=== PATIENT | male | born 1970 | race Caucasian/White ===

== ENCOUNTER 2020-03-06 07:05 | Day surgery (SDC) | payer SELFPAY ==
[2020-02-28 10:48] VITALS: BMI 32.1
--- NOTE | 2020-02-28 12:53 | HO.ANESPROP2 ---
Documented by User: Keiko Arita 03/05/20 10:54 HPI - Anesthesia Eval Consult details Narrative: 49yo M for colonoscopy [facility] Past Medical History Medical History History of fatty infiltration of liver Hx of mitral valve prolapse Pulmonary nodule Surgical History Surgical History H/O mitral valve repair Hx of cardiac catheterization Social History Social History Smoking Status: Former smoker Smoking Quit Date: 5-10 yr ago per H&P Advance Directives: No (unknown) Advance Directives Information Provided: No Meds Allergies Allergy/AdvReac Type Severity Reaction Status Date / Time No Known Allergies Allergy Verified 02/28/20 10:56 Home Medications Medication Instructions Recorded Confirmed Type aspirin 81 mg PO DAILY 02/28/20 03/06/20 History multivitamin 1 tab PO DAILY 02/28/20 02/28/20 History Exam Exam Date and Time: February 28, 2020 1253 Height,Weight and Vital Signs: Height 6 ft Weight 107.501 kg Pertinent Lab Results Pertinent Lab Results: Laboratory Tests 10/26/19 10/26/19 08:35 08:35 WBC 4.7 L Hgb 15.3 Hct 43.5 Plt Count 161 Sodium 140 Potassium 4.1 Chloride 105 BUN 21 H Creatinine 1.20 Narrative Narrative: EKG 10/30/19: NSR, ?LAE, Incomp RBBB, Prolonged QT@308 Per cardiology 01/08/20, pt was seen for ANGEL and chest tightness. ETT was essentially normal. Echo showed good mitral valve repair with secondary mild mitral stenosis. Nothing significant noticed to explain dyspnea. Clinically, not in heart failure. Per pulmonary 12/2019, mild restrictive physiology on PFT does not explain underlying dyspnea. Assessment and Plan Assessment Anesthesia Assessment: Chart Reviewed Documented by User: Facundo Martinez 03/06/20 08:33 [facility] Past Medical History Medical History History of fatty infiltration of liver Hx of mitral valve prolapse Pulmonary nodule Surgical History Surgical History H/O mitral valve repair Hx of cardiac catheterization Social History Social History Smoking Status: Former smoker Smoking Quit Date: 5-10 yr ago per H&P Advance Directives: No (unknown) Advance Directives Information Provided: No Meds Allergies Allergy/AdvReac Type Severity Reaction Status Date / Time No Known Allergies Allergy Verified 02/28/20 10:56 Home Medications Medication Instructions Recorded Confirmed Type aspirin 81 mg PO DAILY 02/28/20 03/06/20 History multivitamin 1 tab PO DAILY 02/28/20 02/28/20 History Exam Airway Mallampati Class: II TM Dist: >3cm Neck ROM: Full Denture: Upper Loose/Missing/Broken Teeth: Lower (Poor dentition) Heart: [id number] Lungs: cta b/l Assessment and Plan Assessment Anesthesia Assessment: Anesthesia Plan Discussed, PAT Visit and Chart Reviewed Final Anesthetic Review NPO: Yes ASA Class: II Final Preanesthetic Review: No Changes in Pt Med Stat, Meds/Allgs Chart Reviewed, Consent Obtained/Reviewed and Anes Risks/Benef Reviewed Patient Risk: Low Procedure Risk: Low Anesthetic Plan Anesthetic Plan: MAC: Disposition: Standard PACU
[2020-03-06 07:17] VITALS: BP 145/92; PULSE 93; RESP 18; TEMP 36.1; O2SAT 98
[2020-03-06] MEDS: Lactated Ringers 1,000 ML 100 ML IVCONT (07:33)
[2020-03-06] MEDS: Gentamicin Sulfate/NaCl 80 MG/100 ML PIGGYBACK 100 MG IV (07:40)
[2020-03-06] MEDS: Ampicillin Sodium 2 GM in 0.9 % Sodium Chloride 100 ML IV (07:41)
[2020-03-06 09:36] VITALS: BP 102/68; PULSE 84; RESP 12; TEMP 36.3; O2SAT 93
--- NOTE | 2020-03-06 09:39 | PM.OP ---
Brief Operative Note Date of procedure: 03/06/20 Pre-op diagnosis: Screening Post-op diagnosis: other (Diverticulosis, Internal hemorrhoids) Procedure: Colonoscopy to cecum and TI Surgeon: Mello Soto Anesthesia: MAC Pathology: none sent Condition: stable Disposition: PACU
[2020-03-06 09:51] VITALS: BP 121/85; PULSE 84; RESP 18; O2SAT 96
--- NOTE | 2020-04-14 12:03 | OP_ITS ---
SURGEON: Mello Soto MD INDICATIONS: The patient presents for evaluation of colorectal cancer screening. Full consent was obtained from him for this, including the risks of bleeding and perforation. PREOPERATIVE DIAGNOSIS: Colorectal cancer screening. POSTOPERATIVE DIAGNOSIS: PROCEDURE PERFORMED: Colonoscopy to the cecum and terminal ileum. ESTIMATED BLOOD LOSS: COMPLICATIONS: ANESTHESIA: Medication used, monitored anesthesia care. ASSISTANTS: SPECIMENS: POSTOPERATIVE DIAGNOSES: Colorectal cancer screening, diverticulosis, and internal hemorrhoids. DESCRIPTION OF PROCEDURE: The patient was placed in the left lateral decubitus position. The digital rectal exam revealed no abnormalities. The Olympus video pediatric colonoscope was entered into the rectum and advanced to the cecum. Once in the cecum, I did identify normal-appearing cecal pouch with appendiceal orifice and normal-appearing ileocecal valve. The terminal ileum was cannulated and appeared normal. The scope was withdrawn back into the colon. The entire cecum and ileocecal valve appeared normal. The scope was slowly withdrawn, assessing all mucosal surfaces carefully. Preparation was excellent. I did not visualize any sign of polyps, colitis, or angiodysplasia. There was a mild amount of sigmoid diverticulosis. In the rectum, scope was retroflexed visualizing internal hemorrhoids, but no other pathology. The rectal mucosa appeared normal. The scope was straightened and withdrawn from the patient. He tolerated the procedure well and was returned to recovery area in stable condition. IMPRESSION: 1. Sigmoid diverticulosis. 2. Internal hemorrhoids. PLAN: Given the negative exam and negative family history, I would recommend a followup colonoscopy in 10 years for further screening. Mello Soto MD RMW/MODL / [id number]
== END 2020-03-06 10:50 | disposition home or self-care (01) ==
PROVIDERS: PCP Internal Medicine; Visit Provider Internal Medicine
PROC: 0DJD8ZZ Inspection of Lower Intestinal Tract, Via Natural or Artificial Opening Endoscopic (ICD-10-PCS; CPT 45378; principal; 2020-03-06 08:30)
DX: Z12.11 Encounter for screening for malignant neoplasm of colon (principal); K57.30 Diverticulosis of large intestine without perforation or abscess without bleeding; K64.8 Other hemorrhoids; K76.0 Fatty (change of) liver, not elsewhere classified; R91.1 Solitary pulmonary nodule; Z79.82 Long term (current) use of aspirin; Z87.891 Personal history of nicotine dependence
CPT/HCPCS: 45378; J0290; J1580

== ENCOUNTER 2020-09-19 12:56 | Outpatient (REF) | payer OTHER, SELFPAY ==
[2020-09-19 13:27] LABS: COVID-19 Test Negative (Negative)
== END 2020-09-19 12:57 | disposition home or self-care (01) ==
LOC: HO.LAB 12:56
PROVIDERS: Visit Provider Internal Medicine
DX: Z20.822 Contact with and (suspected) exposure to COVID-19 (principal)
CPT/HCPCS: 36415; 87635; C9803

== ENCOUNTER 2020-11-11 16:42 | Emergency (ER) | payer OTHER, SELFPAY ==
--- NOTE | 2020-11-11 | ECG_ITS ---
Test Reason : cp Blood Pressure : / mmHG Vent. Rate : 092 BPM Atrial Rate : 092 BPM P-R Int : 164 ms QRS Dur : 120 ms QT Int : 410 ms P-R-T Axes : 037 054 031 degrees QTc Int : 507 ms Sinus rhythm with Premature atrial complexes Possible Left atrial enlargement Right bundle branch block Abnormal ECG No previous ECGs available Referred By: Generic ED Physician Electronically Signed By:Santo Newberry
--- NOTE | ~2020-11-11 | XR_ITS ---
EXAMINATION: XR CHEST CLINICAL INFORMATION: Chest pain COMPARISON: Chest CT 01/22/2020 TECHNIQUE: Frontal view of the chest was obtained. FINDINGS: Patient is status post median sternotomy. No significant abnormality is noted involving the heart, lungs, mediastinum, bony thorax or soft tissues. XR/XR chest 1V IMPRESSION: No acute intrathoracic disease.
--- NOTE | ~2020-11-11 | CT_ITS ---
EXAMINATION: CT ANGIOGRAM OF THE CHEST WITH AND WITHOUT CONTRAST (CT PULMONARY ANGIOGRAM FOR PE) CLINICAL INFORMATION: Reason for Exam Cp, cough blood COMPARISON: Chest radiograph 11/11/2020. Chest radiograph 01/22/2020. TECHNIQUE: Prior to contrast administration, noncontrast localization images were obtained. Subsequently, multidetector volumetric imaging was performed from the thoracic inlet to below the diaphragms following the administration of 71 mL Omnipaque 350 intravenous contrast. No contrast reaction reported Sagittal, coronal, and MIP oblique sagittal reformatted images were obtained on the CT workstation, uploaded to PACS, and reviewed. This CT examination was performed using dose optimization techniques as appropriate, variously including the following: *Automated exposure control *Adjustment of mA and/or kV according to patient size (this includes techniques or standardized protocols for targeted exams where dose is matched to indication/reason for exam; i.e. extremities or head) *Use of iterative reconstruction technique Total exam dose-length product 376 mGy-cm FINDINGS: QUALITY OF STUDY/CONTRAST BOLUS: Satisfactory. PULMONARY ARTERIES: No central or segmental pulmonary emboli. THORACIC AORTA: No aneurysm or dissection. LUNG: A 2 mm noncalcified subpleural nodule within the left lung base (series 4 image 38, series 5 image 306) is unchanged compared with 01/22/2020. No pulmonary consolidation is identified. No peribronchial wall thickening or endobronchial lesions noted. No centrilobular emphysematous changes. Minimal coarse reticular opacities are present within the lung bases and may represent minimal atelectasis or subpleural parenchymal scarring. PLEURA: No pleural effusion or pneumothorax. MEDIASTINUM: Normal heart size. No pericardial effusion. No hilar or mediastinal lymphadenopathy. No evidence of septal bowing or right heart strain. Partial visualization is made of a 9 mm rounded low-density focus within the left lobe of the thyroid which is statistically most likely to be benign and as an incidental finding does not specifically warranted additional imaging follow-up. Motion artifact suggestive of a mitral valve prosthesis is noted. CHEST WALL/AXILLA: Multiple median sternotomy wires are noted. OSSEOUS STRUCTURES: No suspicious skeletal lesions are noted. Multiple foci likely representing vertebral body hemangiomas are incidentally noted along with areas of scattered vertebral body endplate osteophytosis including prominent left lateral bridging osteophytosis within the midthoracic spine. UPPER ABDOMEN: Unremarkable. No reflux of contrast into the hepatic veins to suggest elevated right heart pressures. CT/CT angio chest PE protocol IMPRESSION: 1. CT pulmonary angiogram negative for pulmonary emboli or acute abnormalities. 2. No evidence of pulmonary edema or pneumonia. 3. Single 2 mm subpleural noncalcified pulmonary nodule within the left lung base unchanged compared with 01/22/2020 which is benign in appearance. 4. Partially visualized mitral valve prosthesis or mitral valve annulus. This region is obscured from precise visualization by cardiac motion artifact. VTE: negative
[2020-11-11 16:44] VITALS: BP 142/82; PULSE 95; RESP 18; TEMP 36.7; O2SAT 95; BMI 29.8
--- NOTE | 2020-11-11 17:14 | ED.CHESTPAIN ---
HPI - Chest Pain General Chief Complaint: Chest Pain Stated Complaint: Chest pain/SOB Time Seen by Provider: 11/11/20 17:11 Source: patient Mode of arrival: ambulatory Limitations: no limitations History of Present Illness HPI narrative: 50-year-old male with history of mitral valve replacement who presents with complaint of left-sided chest pain started since yesterday. Pain described as ache like worsening with certain movements and deep inspiration as well as his mild cough. States he did notice that there was phlegm with some blood in it. States symptoms started after he played softball game and over-exerted himself. Pain is reproducible with palpation and certain movements. He otherwise denies any fever or chills, he has received both of his COVID-19 vaccinations. MD complaint: chest pain Onset (ago): day(s) (Yesterday) Prior episodes: No Pain radiation: none Severity: moderate Quality: aching Relieving factors: rest Exacerbating factors: inspiration, palpation and movement Treatment prior to arrival: none Risk Factors Coronary artery disease risk factors: none Thoracic aortic dissection risk factors: none Related Data Home Medications Medication Instructions Recorded Confirmed aspirin 81 mg PO DAILY 02/28/20 03/06/20 multivitamin 1 tab PO DAILY 02/28/20 02/28/20 Allergies Allergy/AdvReac Type Severity Reaction Status Date / Time No Known Allergies Allergy Verified 03/06/20 14:07 Review of Systems Review of Systems: Constitutional: No Weight loss, No Fever, No Chills, No Night Sweats, No Fatigue, No Malaise ENT/Mouth: No Hearing loss, No Ear Pain, No Nasal Congestion, No Sinus Pain, No Hoarseness, No sore throat, No Rhinorrhea, No Swallowing Difficulty Eyes: No Eye Pain, No Swelling, No Redness, No Foreign Body, No Discharge, No Vision Changes Cardiovascular: + Chest Pain, No SOB, No Dyspnea on Exertion, No Orthopnea, No Edema, No Palpitations Respiratory: + Cough, No Sputum, No Wheezing, No Smoke Exposure, No Dyspnea Gastrointestinal: No Nausea, No Vomiting, No Diarrhea, No Constipation, No abdominal Pain, No Hematochezia, No Melena Genitourinary: no irregular bleeding, No Dysuria, No Urinary Frequency, No Hematuria, No Urinary Incontinence, No Urgency, No Flank Pain, No Urinary Flow Changes, No Hesitancy Musculoskeletal: No joint pain, No Myalgias, No Joint Swelling Skin: No Skin Lesions, No rash Neuro: No Weakness, No Numbness, No Paresthesias, No Loss of Consciousness, No Dizziness, No Headache Psych: No Social Issues Heme/Lymph: No Bruising, No Bleeding,No Lymphadenopathy Endocrine: No Polyuria, No Polydipsia, No Temperature Intolerance Yes all other systems are reviewed and are negative [facility] Past Medical History Medical History History of fatty infiltration of liver Hx of mitral valve prolapse Pulmonary nodule Surgical History H/O mitral valve repair Hx of cardiac catheterization Family History Family History (Updated 03/06/20 @ 14:07 by Nayla Mena Shayan) Father Medical history unknown Mother Medical history unknown Social History Social History Alcohol intake: current Alcohol intake frequency: holidays/special occasions only Patient Tobacco Use Status: Never used Tobacco Use of substances other than those prescribed or required for medical reasons: No Advance Directives: No Advance Directives Information Provided: No Physical Exam Vital Signs: Vital Signs: Last Vital Signs Temp 98.1 F 11/11/20 16:44 Pulse 85 11/11/20 19:43 Resp 16 11/11/20 19:43 BP 110/63 11/11/20 19:43 Pulse Ox 96 11/11/20 19:43 Body Mass Index 29.8 Reviewed Const: General: cooperative and healthy appearing; No acute distress or intoxicated appearing Nutritional Appearance: average body habitus Orientation/consciousness: patient oriented x3 HENMT: Head: Yes normal to inspection Ears: hearing grossly normal bilaterally Eyes: General: appearance normal, both eyes and all related structures Visual Adorno: normal visual adorno by confrontation Neck: Neck: Yes normal visual inspection, No positive Brudzinski's sign, No positive Kernig's sign and No tender Thyroid: Thyroid normal Chest: Chest palpation & inspection: tenderness pectoral muscle on the left Resp: Effort & Inspection: normal respiratory effort Auscultation: clear to auscultation bilaterally Cardio: Jugular venous distension: no JVD Heart sounds: S1 normal heart sound present and S2 normal heart sound present GI: Inspection: Yes normal to inspection Percussion: Yes normal to percussion Auscultation: normal bowel sounds : General: Yes no CVA tenderness Back/Spine/Pelvis: Back: no CVA tenderness Skin: General skin exam: no rashes or lesions noted Neuro: General: patient oriented x3 Extrem: General: Yes normal to inspection Course Course Course Narrative: Atypical, pain reproducible does have mild cough and phlegm with reported blood 1 episode. He does not take any blood thinners. Will check cardiac enzymes, EKG and chest x-ray. He is slightly tachycardic at 101 does appear anxious and admits to being anxious he does have mitral valve replacement and states that this is medium anxious that he is having this pain. Check CTA chest rule out PE. EKG on arrival nondiagnostic. Will treat with gradual IV fluids and Tylenol p.o.. Reevaluation(s) Reevaluation #1: Labs overall reassuring repeat troponin without delta. CTA chest unremarkable. Findings similar to previous. Discussed with patient and significant other. Will discharge home with instructions for costochondritis, supportive care, return and follow-up instructions. Comfortable plan. Stable for discharge. MDM - Chest Pain Medical Records Data Attestation: I reviewed the patient's medical records. Lab Data Attestation: I reviewed the patient's lab results. Result diagrams: 11/11/20 17:21 11/11/20 17:21 Labs: Lab Results 11/11/20 11/11/20 11/11/20 Range/Units 17:21 17:21 17:21 WBC 6.1 (4.8-10.8) X10*3/uL RBC 5.03 (4.60-5.80) X10*6/uL Hgb 14.3 (14.0-18.0) g/dl Hct 40.3 L (42-52) % MCV 80.1 (80-98) fL MCH 28.4 (27.0-33.0) pg MCHC 35.5 (31.0-36.0) g/dl RDW 12.8 (11.0-16.0) % Plt Count 144 L (160-400) X10*3/uL MPV 10.0 (9.4-12.4) fL Immature Gran % (Auto) 0.2 (0.0-0.4) % Neut % (Auto) 65.1 (45-73) % Lymph % (Auto) 26.1 (20-40) % [place] % (Auto) 6.8 (2-11) % Eos % (Auto) 1.3 (0-4) % Baso % (Auto) 0.5 (0-2) % Lymph # (Auto) 1.6 (1.2-4.9) X10*3/uL [place] # (Auto) 0.4 (0.1-1.2) X10*3/uL Eos # (Auto) 0.1 (0.0-0.4) X10*3/uL Baso # (Auto) 0.0 (0.0-0.2) X10*3/uL Abs Immat Gran (auto) 0.01 (0.00-0.03) X10*3/uL Absolute Neuts (auto) 3.9 (2.0-8.3) X10*3/uL Absolute Nucleated RBC 0.000 (0.0-0.012) X10*3/uL Nucleated RBC % (auto) 0.0 (0.0-0.2) /100WBC PT 14.2 H (10.8-13.0) SEC INR 1.2 H (0.9-1.1) APTT 31.8 (24.1-38.0) SEC Sodium 141 (135-145) mmol/L Potassium 3.6 (3.3-5.1) mmol/L Chloride 109 H (96-108) mmol/L Carbon Dioxide 23 (22-29) mmol/L Anion Gap 13 (12-20) BUN 16 (9-16) mg/dL Creatinine 1.26 (0.5-1.4) mg/dL Estim Creat Clear Calc 84.8 Estimated GFR > 60 Random Glucose 138 H (60-115) mg/dL Calcium 8.9 (8.4-10.2) mg/dL Total Bilirubin 1.1 H (0.0-1.0) mg/dL AST 32 (5-37) U/L ALT 35 (0-40) U/L Alkaline Phosphatase 110 (39-117) U/L Troponin I High Sens (<3.5-35.0) ng/L Total Protein 6.7 (6.5-8.0) g/dL Albumin 4.1 (3.5-5.0) g/dL Urine Color Urine Appearance Urine pH (5.0-8.0) Ur Specific [place] (1.005-1.025) Urine Protein (NEG-TRACE) MG/DL Urine Glucose (UA) (NEG) MG/DL Urine Ketones (NEG) MG/DL Urine Blood (NEG) Urine Nitrite (NEG) Ur Leukocyte Esterase (NEG) Urine RBC (0) /HPF Urine WBC (0-4) /HPF Ur Squamous Epith Cells /LPF Urine Bacteria /LPF Urine Mucus /LPF Urine Opiates Screen (Not Detect) Ur Barbiturates Screen (Not Detect) Ur Phencyclidine Scrn (Not Detect) Ur Amphetamines Screen (Not Detect) U Benzodiazepines Scrn (Not Detect) Urine Cocaine Screen (Not Detect) U Marijuana (THC) Screen (Not Detect) COVID-19 ([facility]) (Negative) COVID-19 Clin Com 11/11/20 11/11/20 11/11/20 Range/Units 17:21 17:29 17:29 WBC (4.8-10.8) X10*3/uL RBC (4.60-5.80) X10*6/uL Hgb (14.0-18.0) g/dl Hct (42-52) % MCV (80-98) fL MCH (27.0-33.0) pg MCHC (31.0-36.0) g/dl RDW (11.0-16.0) % Plt Count (160-400) X10*3/uL MPV (9.4-12.4) fL Immature Gran % (Auto) (0.0-0.4) % Neut % (Auto) (45-73) % Lymph % (Auto) (20-40) % [place] % (Auto) (2-11) % Eos % (Auto) (0-4) % Baso % (Auto) (0-2) % Lymph # (Auto) (1.2-4.9) X10*3/uL [place] # (Auto) (0.1-1.2) X10*3/uL Eos # (Auto) (0.0-0.4) X10*3/uL Baso # (Auto) (0.0-0.2) X10*3/uL Abs Immat Gran (auto) (0.00-0.03) X10*3/uL Absolute Neuts (auto) (2.0-8.3) X10*3/uL Absolute Nucleated RBC (0.0-0.012) X10*3/uL Nucleated RBC % (auto) (0.0-0.2) /100WBC PT (10.8-13.0) SEC INR (0.9-1.1) APTT (24.1-38.0) SEC Sodium (135-145) mmol/L Potassium (3.3-5.1) mmol/L Chloride (96-108) mmol/L Carbon Dioxide (22-29) mmol/L Anion Gap (12-20) BUN (9-16) mg/dL Creatinine (0.5-1.4) mg/dL Estim Creat Clear Calc Estimated GFR Random Glucose (60-115) mg/dL Calcium (8.4-10.2) mg/dL Total Bilirubin (0.0-1.0) mg/dL AST (5-37) U/L ALT (0-40) U/L Alkaline Phosphatase (39-117) U/L Troponin I High Sens 8.1 (<3.5-35.0) ng/L Total Protein (6.5-8.0) g/dL Albumin (3.5-5.0) g/dL Urine Color YELLOW Urine Appearance CLEAR Urine pH 6.0 (5.0-8.0) Ur Specific [place] >= 1.030 H (1.005-1.025) Urine Protein NEG (NEG-TRACE) MG/DL Urine Glucose (UA) NEG (NEG) MG/DL Urine Ketones NEG (NEG) MG/DL Urine Blood NEG (NEG) Urine Nitrite NEG (NEG) Ur Leukocyte Esterase NEG (NEG) Urine RBC 0 (0) /HPF Urine WBC 0 (0-4) /HPF Ur Squamous Epith Cells TRACE /LPF Urine Bacteria TRACE /LPF Urine Mucus 3+ /LPF Urine Opiates Screen Not Detected (Not Detect) Ur Barbiturates Screen Not Detected (Not Detect) Ur Phencyclidine Scrn Not Detected (Not Detect) Ur Amphetamines Screen Not Detected (Not Detect) U Benzodiazepines Scrn Not Detected (Not Detect) Urine Cocaine Screen Not Detected (Not Detect) U Marijuana (THC) Screen POSITIVE H (Not Detect) COVID-19 ([facility]) (Negative) COVID-19 Clin Com 11/11/20 11/11/20 Range/Units 19:37 21:01 WBC (4.8-10.8) X10*3/uL RBC (4.60-5.80) X10*6/uL Hgb (14.0-18.0) g/dl Hct (42-52) % MCV (80-98) fL MCH (27.0-33.0) pg MCHC (31.0-36.0) g/dl RDW (11.0-16.0) % Plt Count (160-400) X10*3/uL MPV (9.4-12.4) fL Immature Gran % (Auto) (0.0-0.4) % Neut % (Auto) (45-73) % Lymph % (Auto) (20-40) % [place] % (Auto) (2-11) % Eos % (Auto) (0-4) % Baso % (Auto) (0-2) % Lymph # (Auto) (1.2-4.9) X10*3/uL [place] # (Auto) (0.1-1.2) X10*3/uL Eos # (Auto) (0.0-0.4) X10*3/uL Baso # (Auto) (0.0-0.2) X10*3/uL Abs Immat Gran (auto) (0.00-0.03) X10*3/uL Absolute Neuts (auto) (2.0-8.3) X10*3/uL Absolute Nucleated RBC (0.0-0.012) X10*3/uL Nucleated RBC % (auto) (0.0-0.2) /100WBC PT (10.8-13.0) SEC INR (0.9-1.1) APTT (24.1-38.0) SEC Sodium (135-145) mmol/L Potassium (3.3-5.1) mmol/L Chloride (96-108) mmol/L Carbon Dioxide (22-29) mmol/L Anion Gap (12-20) BUN (9-16) mg/dL Creatinine (0.5-1.4) mg/dL Estim Creat Clear Calc Estimated GFR Random Glucose (60-115) mg/dL Calcium (8.4-10.2) mg/dL Total Bilirubin (0.0-1.0) mg/dL AST (5-37) U/L ALT (0-40) U/L Alkaline Phosphatase (39-117) U/L Troponin I High Sens 7.4 (<3.5-35.0) ng/L Total Protein (6.5-8.0) g/dL Albumin (3.5-5.0) g/dL Urine Color Urine Appearance Urine pH (5.0-8.0) Ur Specific [place] (1.005-1.025) Urine Protein (NEG-TRACE) MG/DL Urine Glucose (UA) (NEG) MG/DL Urine Ketones (NEG) MG/DL Urine Blood (NEG) Urine Nitrite (NEG) Ur Leukocyte Esterase (NEG) Urine RBC (0) /HPF Urine WBC (0-4) /HPF Ur Squamous Epith Cells /LPF Urine Bacteria /LPF Urine Mucus /LPF Urine Opiates Screen (Not Detect) Ur Barbiturates Screen (Not Detect) Ur Phencyclidine Scrn (Not Detect) Ur Amphetamines Screen (Not Detect) U Benzodiazepines Scrn (Not Detect) Urine Cocaine Screen (Not Detect) U Marijuana (THC) Screen (Not Detect) COVID-19 ([facility]) Negative (Negative) COVID-19 Clin Com See Note Imaging Data Chest x-ray: Radiologist's impression: [address] [id number] ReportSigned Patient: Mikael Mann TMR#: [id number]: 1970Acct:[id number]/Sex: 50 / MADM Date: 11/11/20Loc: Noe Dr: Ordering Physician: Kyler Gallegos NP Date of Service: 11/11/20 Procedure(s): XR chest 1V Accession Number(s): [id number] cc: Kyler Gallegos VP DIRECTOR OF FINANCE~ EXAMINATION: XR CHEST CLINICAL INFORMATION: Chest pain COMPARISON: Chest CT 01/22/2020 TECHNIQUE: Frontal view of the chest was obtained. FINDINGS: Patient is status post median sternotomy. No significant abnormality is noted involving the heart, lungs, mediastinum, bony thorax or soft tissues. XR/XR chest 1V IMPRESSION: No acute intrathoracic disease. Dictated By:BOUCHRA BARNEY MDSigned By:<Electronically signed by BOUCHRA BARNEY MD in [place]>11/11/201800 DD/ TD/TT: Executive Search Consultant: SS CTA chest: Radiologist's impression: [address] [id number] Scan ReportSigned Patient: Mikael Mann TMR#: [id number]: 1970Acct:[id number]/Sex: 50 / MADM Date: 11/11/20Loc: YEE.EDAttending Dr: Ordering Physician: Kyler Gallegos NP Date of Service: 11/11/20 Procedure(s): CT angio chest PE protocol Accession Number(s): [id number] cc: Kyler Gallegos NP~ EXAMINATION: CT ANGIOGRAM OF THE CHEST WITH AND WITHOUT CONTRAST (CT PULMONARY ANGIOGRAM FOR PE) CLINICAL INFORMATION: Reason for Exam Cp, cough blood COMPARISON: Chest radiograph 11/11/2020. Chest radiograph 01/22/2020. TECHNIQUE: Prior to contrast administration, noncontrast localization images were obtained. Subsequently, multidetector volumetric imaging was performed from the thoracic inlet to below the diaphragms following the administration of 71 mL Omnipaque 350 intravenous contrast. No contrast reaction reported Sagittal, coronal, and MIP oblique sagittal reformatted images were obtained on the CT workstation, uploaded to PACS, and reviewed. This CT examination was performed using dose optimization techniques as appropriate, variously including the following: *Automated exposure control *Adjustment of mA and/or kV according to patient size (this includes techniques or standardized protocols for targeted exams where dose is matched to indication/reason for exam; i.e. extremities or head) *Use of iterative reconstruction technique Total exam dose-length product 376 mGy-cm FINDINGS: QUALITY OF STUDY/CONTRAST BOLUS: Satisfactory. PULMONARY ARTERIES: No central or segmental pulmonary emboli. THORACIC AORTA: No aneurysm or dissection. LUNG: A 2 mm noncalcified subpleural nodule within the left lung base (series 4 image 38, series 5 image 306) is unchanged compared with 01/22/2020. No pulmonary consolidation is identified. No peribronchial wall thickening or endobronchial lesions noted. No centrilobular emphysematous changes. Minimal coarse reticular opacities are present within the lung bases and may represent minimal atelectasis or subpleural parenchymal scarring. PLEURA: No pleural effusion or pneumothorax. MEDIASTINUM: Normal heart size. No pericardial effusion. No hilar or mediastinal lymphadenopathy. No evidence of septal bowing or right heart strain. Partial visualization is made of a 9 mm rounded low-density focus within the left lobe of the thyroid which is statistically most likely to be benign and as an incidental finding does not specifically warranted additional imaging follow-up. Motion artifact suggestive of a mitral valve prosthesis is noted. CHEST WALL/AXILLA: Multiple median sternotomy wires are noted. OSSEOUS STRUCTURES: No suspicious skeletal lesions are noted. Multiple foci likely representing vertebral body hemangiomas are incidentally noted along with areas of scattered vertebral body endplate osteophytosis including prominent left lateral bridging osteophytosis within the midthoracic spine. UPPER ABDOMEN: Unremarkable. No reflux of contrast into the hepatic veins to suggest elevated right heart pressures. CT/CT angio chest PE protocol IMPRESSION: 1. CT pulmonary angiogram negative for pulmonary emboli or acute abnormalities. 2. No evidence of pulmonary edema or pneumonia. 3. Single 2 mm subpleural noncalcified pulmonary nodule within the left lung base unchanged compared with 01/22/2020 which is benign in appearance. 4. Partially visualized mitral valve prosthesis or mitral valve annulus. This region is obscured from precise visualization by cardiac motion artifact. VTE: negative Dictated By:TRACI MACIAS MDSigned By:<Electronically signed by TRACI MACIAS MD in [place]>11/11/202014 DD/ 1842TD/TT: Executive Search Consultant: EF ECG Data ECG #1: Interpretation: Vent. Rate : 092 BPM Atrial Rate : 092 BPM P-R Int : 164 ms QRS Dur : 120 ms QT Int : 410 ms P-R-T Axes : 037 054 031 degrees QTc Int : 507 ms Sinus rhythm with Premature atrial complexes Possible Left atrial enlargement Right bundle branch block Abnormal ECG No previous ECGs available Discharge Plan Discharge Clinical Impression: Atypical chest pain, Costalchondritis, Thrombocytopenia Patient Disposition: Home, Self-Care Instructions: Chest Pain (ED), Costochondritis (ED) Additional Instructions: Your exam is consistent with strain of the chest muscle caused by over exertion during softball. The blood work for heart did not show any evidence of a heart attack including repeat blood test. Your chest x-ray did not show any evidence of infection That CT scan of her chest did not show any evidence of pulmonary embolism. At this point I recommend gentle stretching, warm compresses slowly increase your activity as tolerated. You can take [id number] ibuprofen for pain discomfort for next 3 days as needed per label instructions. Follow with her primary care doctor and her administrative support assoc as planned Return if any concerns or worsening symptoms Thank you Prescriptions: No Action multivitamin Tablet 1 tab PO DAILY RF: 0 aspirin 81 mg Tablet 81 mg PO DAILY RF: 0 Referrals: Eric Tubbs MD [Primary Care Provider] - 5 days Stand Alone Forms: Work/School Release Interventions: ED Discharge Assessment Last Done: 11/11/20 21:11 Discharge Date/Time: 11/11/20 21:12
[2020-11-11 17:25] LABS: MANUAL DIFF FLAG NO
[2020-11-11] MEDS: Acetaminophen 325 MG TABLET 975 MG PO (17:26)
[2020-11-11 17:28] LABS: Basophils Percent Auto 0.5 % (0-2); Eosinophils Absolute Auto 0.1 X10*3/uL (0.0-0.4); Eosinophils Percent Auto 1.3 % (0-4); Hematocrit 40.3 % (42-52); Hemoglobin 14.3 g/dl (14.0-18.0); Imm Gran Abs Auto 0.01 X10*3/uL (0.00-0.03); Imm Gran Pct Auto 0.2 % (0.0-0.4); Lymphocytes Absolute Auto 1.6 X10*3/uL (1.2-4.9); Lymphocytes Percent Auto 26.1 % (20-40); Mean Corpuscular HGB Conc 35.5 g/dl (31.0-36.0); Mean Corpuscular Hemoglobin 28.4 pg (27.0-33.0); Mean Corpuscular Volume 80.1 fL (80-98); Monocytes Absolute Auto 0.4 X10*3/uL (0.1-1.2); Monocytes Percent Auto 6.8 % (2-11); Neutrophils Absolute Auto 3.9 X10*3/uL (2.0-8.3); Neutrophils Percent Auto 65.1 % (45-73); Platelet Count 144 X10*3/uL (160-400); Red Blood Count 5.03 X10*6/uL (4.60-5.80); Red Cell Distribution Width 12.8 % (11.0-16.0); White Blood Count 6.1 X10*3/uL (4.8-10.8)
[2020-11-11] MEDS: 0.9 % Sodium Chloride 1,000 ML 999 ML IV (17:28)
[2020-11-11 17:32] LABS: INTERNATIONAL NORM RATIO 1.2 (0.9-1.1); Prothrombin Time 14.2 SEC (10.8-13.0)
[2020-11-11 17:34] LABS: Glucose Urine UA NEG (NEG); Leukocyte Esterase Urine NEG (NEG); Nitrite Urine NEG (NEG); Specific Gravity - Urine >= 1.030 (1.005-1.025); Urine Blood NEG (NEG); Urine Ketones NEG (NEG); Urine Protein NEG (NEG-TRACE)
[2020-11-11 17:35] LABS: Partial Thromboplastin Time 31.8 SEC (24.1-38.0)
[2020-11-11 17:35] LABS: Appearance Urine CLEAR; Color Urine YELLOW
[2020-11-11 17:50] LABS: Bacteria Urine TRACE /LPF; Mucus Urine 3+ /LPF; RBC Urine 0 /HPF (0); Squamous Epithelial Cell Urine TRACE /LPF; WBC Urine 0 /HPF (0-4)
[2020-11-11 18:02] LABS: Alanine Aminotransferase 35 U/L (0-40); Albumin Level 4.1 g/dL (3.5-5.0); Alkaline Phosphatase 110 U/L (39-117); Anion Gap 13 (12-20); Aspartate Amino Transferase 32 U/L (5-37); Bilirubin Total 1.1 mg/dL (0.0-1.0); Blood Urea Nitrogen 16 mg/dL (9-16); Calcium 8.9 mg/dL (8.4-10.2); Carbon Dioxide 23 mmol/L (22-29); Chloride 109 mmol/L (96-108); Creatinine Clr Calc Pharmacy 84.8; Estimated Glomerular Filt Rate > 60; Glucose Random 138 mg/dL (60-115); Potassium 3.6 mmol/L (3.3-5.1); Sodium 141 mmol/L (135-145); Total Protein 6.7 g/dL (6.5-8.0)
[2020-11-11 18:03] LABS: Amphetamine Screen Urine Not Detected (Not Detect); Barbiturates, Urine Not Detected (Not Detect); Benzodiazepines Screen Urine Not Detected (Not Detect); Cannabinoid Screen Urine POSITIVE (Not Detect); Cocaine Screen Urine Not Detected (Not Detect); Opiate Screen Urine Not Detected (Not Detect); Phencyclidine Screen Urine Not Detected (Not Detect)
[2020-11-11 18:08] LABS: Troponin-I High Sensitivity 8.1 ng/L (<3.5-35.0)
[2020-11-11] MEDS: iohexoL 350 MG/ML 100 ML INFUS..BTL IV (19:34)
[2020-11-11 19:43] VITALS: BP 110/63; PULSE 85; RESP 16; O2SAT 96
[2020-11-11 20:13] LABS: Troponin-I High Sensitivity 7.4 ng/L (<3.5-35.0)
[2020-11-11 21:22] LABS: COVID-19 Test Negative (Negative)
== END 2020-11-11 21:12 | disposition home or self-care (01) ==
PROVIDERS: Nurse Practitioner Primary Care; Emergency Provider Emergency Medicine; PCP Internal Medicine
DX: R07.89 Other chest pain (principal); M94.0 Chondrocostal junction syndrome [Tietze]; D69.6 Thrombocytopenia, unspecified; Z95.2 Presence of prosthetic heart valve; Z79.82 Long term (current) use of aspirin; Z20.822 Contact with and (suspected) exposure to COVID-19
CPT/HCPCS: 36415; 71045; 71275; 80053; 80307; 81001; 84484; 85025; 85610; 85730; 87635; 93005; 96360; 99285; Q9967

== ENCOUNTER 2022-04-28 16:57 | Emergency (ER) | payer BC, SELFPAY ==
--- NOTE | 2022-04-28 17:00 | ECG_ITS ---
Test Reason : CHEST PAIN Blood Pressure : / mmHG Vent. Rate : 090 BPM Atrial Rate : 090 BPM P-R Int : 160 ms QRS Dur : 114 ms QT Int : 388 ms P-R-T Axes : 018 041 016 degrees QTc Int : 474 ms Normal sinus rhythm Incomplete right bundle branch block Borderline ECG When compared with ECG of 11-NOV-2020 16:54, Premature atrial complexes are no longer Present Referred By: Generic ED Physician Electronically Signed By:KATRINA RUIZ MD
[2022-04-28 18:25] VITALS: BP 118/77; PULSE 84; RESP 16; TEMP 36.6; O2SAT 96; BMI 29.1
[2022-04-28 18:41] VITALS: BP 124/76; PULSE 75; RESP 18; TEMP 36.3; O2SAT 97
[2022-04-28 18:52] LABS: IDNOW Serial# 16C4AD1C; Influenza A Invalid (Negative); Influenza B2 Invalid (Negative)
--- NOTE | 2022-04-28 19:02 | ED.CHESTPAIN ---
HPI - Chest Pain General Chief Complaint: Chest Pain Stated Complaint: Chest pain/Difficulty breathing Time Seen by Provider: 04/28/22 18:54 Source: patient Mode of arrival: ambulatory Limitations: no limitations History of Present Illness HPI narrative: Patient is status post mitral valve annuloplasty 6 years ago no other coronary artery disease noticed pain left side of the chest for last 3 days off and on lasting for few minutes today pain got worse lasted for 10 minutes associated with cold sweats pain was radiating to the left arm felt little short of breath patient does have history of anxiety and poor sleep Related Data Home Medications Medication Instructions Recorded Confirmed aspirin 81 mg tablet 81 mg PO DAILY 02/28/20 06/11/21 multivitamin 1 tab PO DAILY 02/28/20 06/11/21 Previous Rx's Medication Instructions Recorded cephalexin 500 mg capsule 500 mg PO Q8H #30 caps 06/11/21 aspirin 81 mg chewable tablet 81 mg PO DAILY #30 tabs 04/28/22 Allergies Allergy/AdvReac Type Severity Reaction Status Date / Time No Known Allergies Allergy Verified 06/11/21 14:17 Review of Systems Review of Systems: Yes all other systems are reviewed and are negative [facility] Past Medical History Medical History History of fatty infiltration of liver Hx of mitral valve prolapse Pulmonary nodule Surgical History H/O mitral valve repair Hx of cardiac catheterization Family History Family History Father Medical history unknown Mother Medical history unknown Social History Social History Housing: Apartment Alcohol intake: former Patient Tobacco Use Status: Former Tobacco user Tobacco use type: Cigarette Smoked in Last 30 Days: No e-Cigarette/Vaping Use: Never Used Second Hand Smoke Exposure: No Use of substances other than those prescribed or required for medical reasons: No Advance Directives: No Advance Directives Information Provided: No service: Yes Current occupational status: employed Cognitive needs: No Hearing needs: No Vision needs: No Physical Exam Vital Signs: Vital Signs: Last Vital Signs Temp 97.4 F 04/28/22 18:41 Pulse 74 04/28/22 19:21 Resp 18 12/06/22 19:35 BP 124/76 04/28/22 18:41 Pulse Ox 97 04/28/22 18:41 O2 Del Method 04/28/22 18:41 BMI result Body Mass Index 29.1 Appearance: Alert. Oriented X3. No acute distress. Eyes: No pallor or icterus ENT: Pharynx normal. Oral Mucosa moist Neck: Normal inspection. Neck supple. CVS: Normal heart rate and rhythm. Pulses normal soft systolic murmur at apex. Respiratory: No respiratory distress. Equal air entry bilateral, no wheezing/rales/rhonchi Abdomen: Soft and nontender. Bowel sounds are present, no mass palpable, no CVA tenderness Skin: Skin warm and dry. Normal skin color. Normal skin turgor. Extremities: No lower extremity edema. No calf tenderness Neuro: Oriented X 3. No motor deficit. Medications Administered Discontinued Medications Generic Name Dose Route Start Last Admin Trade Name Freq PRN Reason Stop Dose Admin Aspirin 162 mg 04/28/22 19:10 04/28/22 19:22 Aspirin Enteric Coated 81 Mg Tablet. PO 04/28/22 19:11 162 mg ONCE ONE Administration Nitroglycerin 0.5 inch 04/28/22 19:10 04/28/22 19:21 Nitroglycerin 2 % Oint 1 Gm Packet TRANSDERMA 04/28/22 19:11 0.5 inch ONCE ONE Administration Medical Decision Making Medical Decision Making [facility] Narrative: Patient with chest pain for last 3 days EKG without any ischemic changes 2 sets of high sensitive troponin negative without any delta change. For leisure patient home advised to follow with online marketing strategist Differential Diagnoses: Differential diagnosis (ACS, PE, anxiety, costochondritis) Differential Diagnosis: The differential diagnosis associated with the patient?s presentation includes: Independent interpretation of EKG, rhythm strip, radiology study: Independent interp EKG,rhythm strip, radiology study I performed an independent interpretation of the: EKG My interpretation is Normal sinus rhythm heart rate 90 beats per minute incomplete right bundle-branch blockl normal axis no acute ST wave changes no acute ischemia Discharge Plan Discharge Clinical Impression: Chest pain Patient Disposition: Home, Self-Care Instructions: Chest Pain (ED) Additional Instructions: Take baby aspirin daily Follow-up with PCP/online marketing strategist for further evaluation Report to the ER if worsening of chest pain Prescriptions: New aspirin 81 mg tablet,chewable 81 mg PO DAILY Qty: 30 0RF No Action multivitamin Tablet 1 tab PO DAILY aspirin 81 mg Tablet 81 mg PO DAILY cephalexin 500 mg capsule 500 mg PO Q8H Qty: 30 0RF
[2022-04-28 19:21] VITALS: PULSE 74
[2022-04-28] MEDS: Nitroglycerin 2 % Oint 1 GM Packet 0.5 INCH TRANSDERMA (19:21)
[2022-04-28 19:22] LABS: COVID-19 Test Negative (Negative); IDNOW Serial# BCCEAD1C
[2022-04-28] MEDS: Aspirin Enteric Coated 81 MG TABLET.DR 162 MG PO (19:22)
[2022-04-28 19:35] VITALS: RESP 18
[2022-04-28 19:38] LABS: MANUAL DIFF FLAG NO
[2022-04-28 19:41] LABS: Basophils Percent Auto 0.4 % (0-2); Eosinophils Percent Auto 0.7 % (0-4); Hematocrit 41.7 % (42.0-52.0); Hemoglobin 14.8 g/dl (14.0-18.0); Imm Gran Abs Auto 0.01 X10*3/uL (0.00-0.03); Imm Gran Pct Auto 0.2 % (0.0-0.4); Lymphocytes Absolute Auto 1.7 X10*3/uL (1.2-4.9); Lymphocytes Percent Auto 30.5 % (20-40); Mean Corpuscular HGB Conc 35.5 g/dl (31.0-36.0); Mean Corpuscular Hemoglobin 28.5 pg (27.0-33.0); Mean Corpuscular Volume 80.3 fL (80.0-98.0); Mean Platelet Volume 9.8 fL (9.4-12.4); Monocytes Absolute Auto 0.3 X10*3/uL (0.1-1.2); Monocytes Percent Auto 5.6 % (2-11); Neutrophils Absolute Auto 3.6 x10*3/uL (2.0-8.3); Neutrophils Percent Auto 62.6 % (45-73); Platelet Count 141 X10*3/uL (160-400); Red Blood Count 5.19 X10*6/uL (4.60-5.80); Red Cell Distribution Width 12.7 % (11.0-16.0); White Blood Count 5.7 X10*3/uL (4.8-10.8)
--- NOTE | 2022-04-28 19:43 | PC.NURSE ---
Pt's V/S are stable, Pt has left chest pain that radiates to the left arm 8/10 x 2days. Pt had done EKG, IV line was inserted and labs were obtain. Pt was medicated as order. Pt has clear lung sounds upper lobes and diminished lung sound in the lower lungs bilaterally. skin turgor +, capillary refills <2, pt denies N/V and other s/s. Pt spouse is at bedside. Pt appears calm and he is cooperating with all the interventions. will continue to monitor.
[2022-04-28 19:57] LABS: INTERNATIONAL NORM RATIO 1.2 (0.9-1.1)
[2022-04-28 20:00] LABS: Partial Thromboplastin Time 30.1 SEC (26.0-36.4)
[2022-04-28 20:02] LABS: IDNOW Serial# 9DB6401D; Influenza A Negative (Negative); Influenza B2 Negative (Negative)
[2022-04-28 20:05] LABS: Alanine Aminotransferase 38 U/L (0-40); Albumin Level 4.4 g/dL (3.5-5.0); Alkaline Phosphatase 90 U/L (39-117); Anion Gap 9 (12-20); Aspartate Amino Transferase 32 U/L (5-37); Bilirubin Total 1.2 mg/dL (0.0-1.0); Blood Urea Nitrogen 18 mg/dL (9-16); Calcium 9.4 mg/dL (8.4-10.2); Carbon Dioxide 29 mmol/L (22-29); Chloride 108 mmol/L (96-108); Creatinine Clr Calc Pharmacy 89.3; Estimated Glomerular Filt Rate > 60; Glucose Random 88 mg/dL (60-115); Magnesium 1.9 mg/dL (1.6-2.6); Potassium 3.9 mmol/L (3.3-5.1); Sodium 142 mmol/L (135-145)
[2022-04-28 20:09] LABS: D Dimer High Sensitivity < 150 NG/ML
[2022-04-28 20:10] LABS: Troponin-I High Sensitivity 7.3 ng/L (<3.5-35.0)
[2022-04-28 22:22] LABS: Troponin-I High Sensitivity 8.7 ng/L (<3.5-35.0)
== END 2022-04-28 23:28 | disposition home or self-care (01) ==
PROVIDERS: Student in an Organized Health Care Education/Training Program; Emergency Provider Internal Medicine; PCP Internal Medicine
DX: R07.89 Other chest pain (principal); R06.02 Shortness of breath; Z20.822 Contact with and (suspected) exposure to COVID-19; Z79.899 Other long term (current) drug therapy; Z87.891 Personal history of nicotine dependence
CPT/HCPCS: 36415; 80053; 83735; 84484; 85025; 85379; 85610; 85730; 87502; 87635; 93005; 99284; 99285

== ENCOUNTER → 2022-04-30 11:11 | Outpatient (REF) | payer BC, SELFPAY ==
--- NOTE | 2022-04-30 11:16 | CA_ITS ---
Transthoracic Echocardiogram Patient (Last, First, Middle): Mikael Mann T Gender: Male Date of : 1970 Age: 51 Procedure Date: 04/30/2022 Procedure Type: Transthoracic Echocardiogram Location: OP Height: 182.88 cm Weight: 97.52 kg BSA: 2.20 m2 Heart Rate: 77 bpm BP: 100 / 64 mmHg Aeronautical Research Engineer: SB Referring MD: Santo Newberry MD Symptoms: R06.00 - Dyspnea, unspecified Study Quality: Adequate ECG Rhythm: Sinus Conclusions: - Normal left ventricular cavity size. There is moderately increased left ventricular wall thickness. The left ventricular systolic function is low normal. The visually estimated ejection fraction is between 50-55%. - Mildly increased right ventricular cavity size. There is mild to moderately decreased right ventricular systolic function. - The left atrium is mildly dilated. There is no evidence of interatrial shunt by color Doppler. RA is dilated. - There is mild mitral valve stenosis. The mean mitral valve gradient is 4.00 mmHg. Previous mitral valve repair and ring annuloplasty. Findings Left Ventricle Normal left ventricular cavity size. There is moderately increased left ventricular wall thickness. The left ventricular systolic function is low normal. The visually estimated ejection fraction is between 50-55%. There is no evidence of regional wall motion abnormalities. Diastolic function is indeterminate on the basis of available data. Right Ventricle Mildly increased right ventricular cavity size. There is mild to moderately decreased right ventricular systolic function. Atria The left atrium is mildly dilated. There is no evidence of interatrial shunt by color Doppler. RA is dilated. Aortic Valve Normal aortic valve structure and function. There is no aortic valve stenosis. There is no aortic valve regurgitation. Mitral Valve There is no mitral valve regurgitation. There is mild mitral valve stenosis. The mean mitral valve gradient is 4.00 mmHg. Previous mitral valve repair and ring annuloplasty. Pulmonic Valve Normal pulmonic valve structure and function. There is trace pulmonic valve regurgitation. Tricuspid Valve Normal tricuspid valve structure and function. There is trace tricuspid valve regurgitation. Normal right atrial pressure. There is no evidence of pulmonary hypertension. Great Vessels All visible segments of the aorta are normal in size. The visualized portions of the pulmonary artery and branches are normal. Venous The inferior vena cava is normal in size and collapses greater than 50% with inspiration. Pericardium/Pleural There is no evidence of pericardial effusion. Prior Study Comparison Changes noted compared to prior study dated: 12/18/2019. Low normal LVEF. RV mildly dilated with mild to moderate dysfunction. Measurements 2D Linear Measurements IVSd: 1.48 0.6-0.9/0.6-1.0 cm LVIDd: 4.89 3.9-5.3/4.2-5.9 cm LVIDd Index: 2.22 2.4-3.2/2.2-3.1 cm/m2 LVIDs: 3.43 2.0-3.6 cm LVPWd: 1.40 0.7-1.1 cm LA Diam: 3.60 2.7-3.8/3.0-4.0 cm LAIDs Index: 1.64 1.5-2.3 cm/m2 LV Mass: 366.25 67-162/88-224 g LV Mass Index: 166.48 43-95/49-115 g/m2 LVOT Diam: 2.40 3.0+(-)1.3 cm 2D Systolic Function EF 4C: 51.80 >55% EF 2C: 55.30 >55% EF BiP: 53.60 >55% Mitral Valve MV VTI: 0.42 MV Pk Gadiel: 1.28 MV Mn Gadiel: 0.97 MV Pk Grad: 7.00 MV Mn Grad: 4.00 MV Pk E: 1.24 MV PK A: 1.15 MV Decel Time: 321.00 E/A: 1.10 E'Lateral: 5.33 E'Medial: 4.03 E/E' Med: 30.80 E/E' Lat: 23.30 PHT: 94.00 MVA PHT: 2.34 MVA Continuity: 2.30 Decel [place]: 3.87 Aortic Valve AoV Pk Gadiel: 1.07 AoV Pk Grad: 5.00 JENNIFER: 4.56 LVOT LVOT Pk Gadiel: 1.08 LVOT Mn Gadiel: 0.76 LVOT VTI: 0.21 LVOT Pk Grad: 5.00 LVOT Mn Grad: 3.00 LVOT Diam: 2.40 LVOT Area: 4.52 Diastolic Function MV Pk E: 1.24 MV Pk A: 1.15 E/A: 1.10 E'Medial: 4.03 E/E' Med: 30.80 E' Laterial: 5.33 E/E' Lat: 23.30 Right Ventricle TAPSE (mm): 16.00 TVS' Gadiel: 7.00 Tricuspid Valve TR Pk Gadiel: 1.91 TR Pk Grad: 15.00 RA Press: 3.00 RVSP: 18.00 Great Vessels Aorta Sinus of Valsalva: 3.60 2.0-3.[address] [place]: 2.88 1.7-3.4 cm Ao Asc: 3.20 2.1-3.4 cm Pulmonary Valve PV Pk Gadiel: 0.87 Peak PV Grad: 3.00 Updated in Other Vendor System with Status of Final Santo Newberry MD electronically signed on 05/01/2022 11:16:06 AM with status of Final
[2022-05-03 08:54] LABS: NT-proBNP 22 pg/mL
== END ==
LOC: HO.CARD 11:11
PROVIDERS: PCP Internal Medicine; Visit Provider Internal Medicine Cardiovascular Disease
DX: R06.00 Dyspnea, unspecified (principal)
CPT/HCPCS: 36415; 83880; 93306

== ENCOUNTER → 2022-05-27 09:18 | Outpatient (BNVA) | payer BC, SELFPAY | PROVIDERS: PCP Internal Medicine; Visit Provider Internal Medicine Cardiovascular Disease | DX: R06.00 Dyspnea, unspecified (principal) ==

== ENCOUNTER → 2022-06-23 10:16 | Outpatient (BNVA) | payer BC, SELFPAY | PROVIDERS: PCP Internal Medicine; Visit Provider Hospitalist | DX: Z13.89 Encounter for screening for other disorder (principal) ==

== ENCOUNTER 2022-06-29 15:44 | Outpatient (REF) | payer BC, SELFPAY ==
--- NOTE | 2022-06-29 17:24 | PFT_ITS ---
Forced vital capacity 73%, FEV1 76%. FEV1/FVC ratio is 80. FEF 25-75 85% and MVV is 89%. Post bronchodilator therapy, there is no improvement. Total lung capacity 74%. Residual volume 84%. Diffusion capacity 72%. CONCLUSION: Very mild degree of restrictive pulmonary disorder. No obstructive airway disorder. No response to bronchodilator therapy. MD LOR Brady/SHERRI / [id number]
== END 2022-06-29 15:45 | disposition home or self-care (01) ==
LOC: HO.RESP 15:44
PROVIDERS: PCP Internal Medicine; Visit Provider Hospitalist
DX: R06.00 Dyspnea, unspecified (principal)
CPT/HCPCS: 94060; 94727; 94729

== ENCOUNTER 2022-07-06 15:56 | Outpatient (REF) | payer BC, SELFPAY ==
--- NOTE | ~2022-07-06 | CT_ITS ---
EXAMINATION: CT CHEST WITHOUT CONTRAST CLINICAL INFORMATION: Follow-up pulmonary nodule COMPARISON: Previous chest CT scans most recent October 2020 TECHNIQUE: Multidetector volumetric CT imaging of the chest was done. Axial MIP volume rendering provided. Sagittal and coronal reformatted images were obtained. This CT examination was performed using dose optimization techniques as appropriate, variously including the following: *Automated exposure control *Adjustment of mA and/or kV according to patient size (this includes techniques or standardized protocols for targeted exams where dose is matched to indication/reason for exam; i.e. extremities or head) *Use of iterative reconstruction technique DLP: 376 mGy-cm FINDINGS: CONTRACT MAIL CARRIER: LUNGS: 2 mm left lower lobe nodule axial image 373 series 5 is stable. There is a 2 mm superior segment right lower lobe nodule axial image 210 series 5 that is new. No other new pulmonary nodules. There is evidence of mild paraseptal emphysema. No endobronchial or endotracheal lesion. MEDIASTINUM: Normal heart size. Question mitral valve replacement. No pericardial effusion. Normal caliber thoracic aorta. No hilar or mediastinal lymphadenopathy. CORONARY ARTERY CALCIFICATION: None visualized on this study. PLEURA: There is no pleural effusion. No pleural mass or thickening. AXILLA: No lymphadenopathy. UPPER ABDOMEN: Unremarkable. OSSEOUS STRUCTURES: Median sternotomy wires. Degenerative changes of the spine and several stable hemangiomas.. CT/CT chest wo IV con IMPRESSION: Stable 2 mm left lower lobe nodule. New 2 mm superior segment right lower lobe nodule. According to the UPDATED 2017 Fleischner Society recommendations, the advised follow-up imaging for less than 6 mm solid nodule: Low risk, no chest CT follow-up and high risk, optional chest CT follow-up in one year Fleischner guidelines were followed.
== END 2022-07-06 15:57 | disposition home or self-care (01) ==
LOC: HO.CT 15:56
PROVIDERS: PCP Internal Medicine; Visit Provider Hospitalist
DX: R91.1 Solitary pulmonary nodule (principal)
CPT/HCPCS: 71250

== ENCOUNTER → 2022-10-20 15:45 | Outpatient (BNVA) | payer BC, SELFPAY | PROVIDERS: PCP Internal Medicine; Visit Provider Hospitalist ==

== ENCOUNTER → 2022-10-29 15:50 | Outpatient (BNVA) | payer BC, SELFPAY | PROVIDERS: PCP Internal Medicine; Referring Provider Internal Medicine; Visit Provider Nurse Practitioner Family ==

== ENCOUNTER 2023-03-30 15:42 | Outpatient (REF) | payer BC, SELFPAY ==
[2023-03-30 16:45] LABS: MANUAL DIFF FLAG NO
[2023-03-30 16:55] LABS: Basophils Percent Auto 0.6 % (0-2); Eosinophils Absolute Auto 0.1 X10*3/uL (0.0-0.4); Hematocrit 40.7 % (42.0-52.0); Hemoglobin 14.4 g/dl (14.0-18.0); Imm Gran Abs Auto 0.01 X10*3/uL (0.00-0.03); Imm Gran Pct Auto 0.2 % (0.0-0.4); Lymphocytes Absolute Auto 1.9 X10*3/uL (1.2-4.9); Lymphocytes Percent Auto 38.5 % (20-40); Mean Corpuscular HGB Conc 35.4 g/dl (31.0-36.0); Mean Corpuscular Volume 82.1 fL (80.0-98.0); Monocytes Absolute Auto 0.3 X10*3/uL (0.1-1.2); Monocytes Percent Auto 6.3 % (2-11); Neutrophils Absolute Auto 2.6 x10*3/uL (2.0-8.3); Neutrophils Percent Auto 52.4 % (45-73); Platelet Count 147 X10*3/uL (160-400); Red Blood Count 4.96 X10*6/uL (4.60-5.80); Red Cell Distribution Width 13.2 % (11.0-16.0); White Blood Count 4.9 X10*3/uL (4.8-10.8)
[2023-03-30 17:16] LABS: Anion Gap 10 (12-20); Blood Urea Nitrogen 18 mg/dL (9-16); Calcium 9.2 mg/dL (8.4-10.2); Carbon Dioxide 28 mmol/L (22-29); Chloride 110 mmol/L (96-108); Estimated Glomerular Filt Rate > 60; Glucose Random 84 mg/dL (60-115); Potassium 3.8 mmol/L (3.3-5.1); Sodium 144 mmol/L (135-145)
[2023-03-30 17:32] LABS: D Dimer High Sensitivity < 150 NG/ML
[2023-03-30 17:35] LABS: Erythrocyte Sedimentation Rate 2 MM/HR (0-15)
[2023-04-01 02:20] LABS: Immunoglobulin E 22 kU/L (<OR=114)
[2023-04-06 15:33] LABS: Asperg fumigatus Precip Abs NEGATIVE (NEGATIVE); Micropoly faeni Abs NEGATIVE (NEGATIVE); Pigeon serum Abs NEGATIVE (NEGATIVE); Saccharo pora viridis Abs NEGATIVE (NEGATIVE); Thermo candidus Abs NEGATIVE (NEGATIVE); Thermoa vulgaris #1 NEGATIVE (NEGATIVE)
== END 2023-03-30 15:43 | disposition home or self-care (01) ==
LOC: HO.LAB 15:42
PROVIDERS: PCP Internal Medicine; Visit Provider Hospitalist
DX: R91.8 Other nonspecific abnormal finding of lung field (principal); R06.00 Dyspnea, unspecified; R00.0 Tachycardia, unspecified; J98.4 Other disorders of lung; R91.1 Solitary pulmonary nodule; Z91.09 Other allergy status, other than to drugs and biological substances
CPT/HCPCS: 36415; 80048; 82785; 85025; 85379; 85652; 86003; 86331; 86606; 86609

== ENCOUNTER 2023-03-30 15:42 | Outpatient (AMB) | payer BC, SELFPAY ==
--- NOTE | 2023-03-30 15:43 | MHC.OFFVIS ---
Intake Vital Signs 03/30/23 15:45 Height 6 ft Weight 224 lb BMI 30.4 BP 118/74 Blood Pressure Location Lt brachial Position Sitting Respiration 12 Pulse Source Pulse Oximeter Pulse Oximetry (%) 97 Oxygen Delivery Method Room Air Intake Visit Reasons: Dyspnea Allergies No Known Allergies Allergy (Verified 03/30/23 15:47) Medication List - Last Reconciled 03/30/23 by Fadumo Gallagher LPN albuterol sulfate 90 mcg/actuation 2 inhalations inhalation Q6H PRN 30 days aspirin 81 mg PO DAILY occbuejnmw-gczskefm-yxhfntcafx 160-9-4.8 mcg/actuation (Breztri Aerosphere) 2 inhalations inhalation BID 30 days HPI HPI Comments History of Present Illness Details The patient is a 52-year-old gentleman with a known mitral valve disease status post surgery back in 2014. The patient states that he has been developing worsening shortness of breath for the last several months. Seems to be getting worse. He is having hard time playing softball with his team. The shortness breath is mainly with activity tbyv-op-quvlgwzc severity. Although he has also noticed that is happening with rest as well. He had 1 occasion when he was at work and he had some shortness of breath he had to step out because he was having hard time breathing. He does not use any inhalers at this time. 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 Therefore he was referred to Pulmonary. In the office we did taken for with brief walking oximetry. The patient ambulated well his dyspnea score was 5/10 in his heart rate went up to about 125 with minimal activity. His pulse ox was reassuring are 98%. 10/20/2022 the patient is here for a pulmonary follow-up visit. Still complaining of shortness of breath with exercise activity. He can go for walks but when he does any extraneous he will have significant shortness of breath. He is playing softball and is hard for him to raise to for space or even to be able to pitch for full gain. The patient did try the rescue inhaler prior to his exercise activity but did not see any significant improvement. We did review his pulmonary function studies actually demonstrating a mild restrictive ventilatory defect. Explained to him that this is likely from his surgical procedure. In addition to that he did have a CT scan of the chest that we personally reviewed demonstrating minimal degree of emphysema and small pulmonary nodules. The patient does have a new 2 mm pulmonary nodule that will need follow-up. Patient was reassured that the nodules are small and do not concerning. He is concerned the fact that there is a positive family history of lung cancer. Will go ahead and repeat the CT scan a year's time. In the meantime will try to maximize his respiratory capacity by given him Breztri. I am hopeful that he feels better with this inhaler. If however he does not feel better then he will call the office and will request an order for V/Q scan in order to assess for chronic thromboembolic disease and also consider a cardiopulmonary exercise tolerance test to further address his dyspnea symptoms. 03/30/2023 the patient is here for a pulmonary follow-up visit. The patient continues to have significant dyspnea on exertion. The patient did take deep breaths tree inhaler but did not seen any significant improvement. Moderate shortness of breath with minimal activity. The patient is frustrated because he has a hard time doing the things that he enjoys. We again to come for 6 minutes walk test. Again became dyspneic specially going up stairs but is heart rate went up to 125 his pulse ox was stable. Therefore will optimize his respiratory therapy but I explained to him that the reason that he does not respond to the inhalers as because this likely a cardiac component to his breathing. His last echocardiogram did have some mild mitral stenosis after his mitral valve surgery. Also demonstrates to have a decreased function in the right ventricle. Again, the patient did have a right heart catheterization in addition to a left heart catheterization which was overall reassuring. Therefore, will request a cardiopulmonary exercise tolerance test to better address the issue. Will also request blood work including a D-dimer. If the D-dimer is elevated will request additional testing to assess for the possibility of thromboembolic disease although this is less likely. 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 Sometimes they do a lot of metal grinding. He does not wear a mask. We did talk about trying to minimize exposure specially to inorganic dust that may ultimately worsen his breathing. I did provide him a peak flow that he can use pre and post work to see if there is any occupational hazards. [facility] Medical History (Updated 03/30/23 @ 20:39 by Hiren Barton MD) Chronic restrictive lung disease Tachycardia Pulmonary nodule History of fatty infiltration of liver Pulmonary nodule Hx of mitral valve prolapse Surgical History Hx of cardiac catheterization H/O mitral valve repair Family History Father Medical history unknown Mother Medical history unknown Social History Housing: Apartment Alcohol intake: current Alcohol intake frequency: holidays/special occasions only Patient Tobacco Use Status: Former Tobacco user Quit Date: 2014 Tobacco use type: Cigarette Years Smoked: 20 +/- e-Cigarette/Vaping Use: Never Used Second Hand Smoke Exposure: Yes service: Yes Current occupational status: employed Cognitive needs: No Hearing needs: No Vision needs: No Review of Systems Const Denies fatigue, Denies fever(s) and Denies weight loss Eyes Denies change in vision ENT Denies change in voice Card Reports palpitations and Reports dyspnea on exertion Resp Reports cough and Reports dyspnea on exertion GI Denies dyspepsia Musc Reports no additional complaints Skin/Breast Denies rash Neuro Reports no additional complaints Endo Denies fatigue and Reports palpitations Omid/Lymph Denies easy bruising Physical Exam Vital Signs: Last Vital Signs Resp 12 03/30/23 15:45 BP 118/74 03/30/23 15:45 Pulse Ox 97 03/30/23 15:45 Oxygen Delivery Method Room Air 03/30/23 15:45 BMI result Body Mass Index 30.4 Const General: comfortable HEENT Head: Yes normal to inspection Eyes General: appearance normal, both eyes and all related structures Neck Neck: Yes supple Chest Chest palpation & inspection: normal inspection of the chest Resp Effort & Inspection: normal respiratory effort and prolonged expiratory phase Auscultation: diminished lung sounds Cardio Rate: regular rate Rhythm: regular rhythm Heart sounds: S1 normal heart sound present and S2 normal heart sound present GI Auscultation: normal bowel sounds Skin General skin exam: no rashes or lesions noted Extrem General: Yes no clubbing, cyanosis or edema Results Reviewed Results Reviewed: personally review his CT chest scans, ECHO, cardiac caterization and PFTs Assessment & Plan Assessment & Plan (1) Pulmonary nodule: Code(s): R91.1 - Solitary pulmonary nodule (2) Dyspnea: Code(s): R06.00 - Dyspnea, unspecified Qualifiers: Dyspnea type: dyspnea on exertion Qualified Code(s): R06.09 - Other forms of dyspnea (3) Tachycardia: Code(s): R00.0 - Tachycardia, unspecified (4) Chronic restrictive lung disease: Code(s): J98.4 - Other disorders of lung Plan stop Breztri BID start Trelegy 200 start Medrol pack MICAELA as needed peak flow pre and post work Bloodwork including ddimer CPET F/U 2 months Orders: Orders Basic Metabolic Panel Today R00.0 - Tachycardia, unspecified, R06.00 - Dyspnea, unspecified Erythrocyte Sedimentation Rate Today R00.0 - Tachycardia, unspecified, R06.00 - Dyspnea, unspecified D Dimer High Sensitivity Today R00.0 - Tachycardia, unspecified, R06.00 - Dyspnea, unspecified Hypersensitive Pneumonitis Prf Today R00.0 - Tachycardia, unspecified, R06.00 - Dyspnea, unspecified, R91.8 - Other nonspecific abnormal finding of lung field Complete Blood Count Auto Diff Today R00.0 - Tachycardia, unspecified, R06.00 - Dyspnea, unspecified Rast Allergen Today R00.0 - Tachycardia, unspecified, R06.00 - Dyspnea, unspecified Immunoglobulin E Today R00.0 - Tachycardia, unspecified, R06.00 - Dyspnea, unspecified CA cardiopulmonary stress test Today R06.00 - Dyspnea, unspecified Medications: New xjuvrwaxjrf-aofsyootu-fipktacb 200-62.5-25 mcg (Trelegy Ellipta) 1 inh inhalation DAILY 30 days 60 ea 12RF methylprednisolone (Medrol (Enrique)) PO PER PKG DIR 6 days 21 ea 0RF Discontinued hzkcladeca-iyjuwimi-aeywewqlwd 160-9-4.8 mcg/actuation (Breztri Aerosphere) Discontinued Reason: Doctor's Order 2 inhalations inhalation BID 30 days 10.7 grams 11RF Coding Level of Care Code Est Pt Level 5 (99588) Diagnoses Pulmonary nodule R91.1 Dyspnea on exertion R06.09 Dyspnea type: dyspnea on exertion Tachycardia R00.0 Chronic restrictive lung disease J98.4 Time Spent (min) 40
[2023-03-30 15:45] VITALS: BP 118/74; RESP 12; O2SAT 97; BMI 30.4
== END 2023-03-30 16:23 | disposition home or self-care (01) ==
PROVIDERS: PCP Internal Medicine; Visit Provider Hospitalist
DX: R06.09 Other forms of dyspnea (principal); R91.1 Solitary pulmonary nodule; J98.4 Other disorders of lung; R00.0 Tachycardia, unspecified
CPT/HCPCS: 99215

== ENCOUNTER 2023-04-02 14:31 | Outpatient (AMB) | payer BC, SELFPAY ==
[2023-04-02 14:37] VITALS: BP 118/76; PULSE 78; O2SAT 97; BMI 30.4
--- NOTE | 2023-04-02 14:37 | MHC.OFFWIV ---
Intake Vital Signs 04/02/23 14:37 Height 6 ft Weight 224 lb BMI 30.4 BP 118/76 Blood Pressure Location Rt brachial Position Sitting Pulse 78 Pulse Source Pulse Oximeter Pulse Oximetry (%) 97 Oxygen Delivery Method Room Air Intake Visit Reasons: EP Right hip to foot pain/Nausea Intake Note: pt is here for c/o right hip pain down to foot, due to softball game someone slide him Patient Tobacco Use Status: Former Tobacco user Quit Date: 2014 Allergies No Known Allergies Allergy (Verified 04/02/23 14:40) Do you need a note to return to daycare/school/sports/work: Yes HPI HPI Comments History of Present Illness Details This is a 52-year-old male who presents to the office today for sick visit. Patient complaining of right hip, right low back pain radiating down his leg. Patient states this has been occurring for the past 2 weeks after he played in a softball game. He states that another player slid into him in the other player's cleats hit his right side. Patient has been having difficulty with ambulation due to pain. He states the pain intermittently radiates into his groin and down his leg. [facility] Medical History (Updated 03/30/23 @ 20:39 by Hiren Barton MD) Chronic restrictive lung disease Tachycardia Pulmonary nodule History of fatty infiltration of liver Pulmonary nodule Hx of mitral valve prolapse Surgical History Hx of cardiac catheterization H/O mitral valve repair Family History Father Medical history unknown Mother Medical history unknown Social History Housing: Apartment Alcohol intake: current Alcohol intake frequency: holidays/special occasions only Patient Tobacco Use Status: Former Tobacco user Quit Date: 2014 Tobacco use type: Cigarette Years Smoked: 20 +/- e-Cigarette/Vaping Use: Never Used Second Hand Smoke Exposure: Yes service: Yes Current occupational status: employed Cognitive needs: No Hearing needs: No Vision needs: No Review of Systems Const All systems reviewed & are unremarkable except as noted in HPI and below Reports no additional complaints Eyes Reports no additional complaints ENT Reports no additional complaints Card Reports no additional complaints Resp Reports no additional complaints GI Reports no additional complaints Reports no additional complaints Musc Reports no additional complaints Skin/Breast Reports system reviewed and no additional complaints, except as documented Neuro Reports no additional complaints Psych Reports no additional complaints Endo Reports no additional complaints Omid/Lymph Reports no additional complaints Aller/Immun Reports no additional complaints Physical Exam Vital Signs: Last Vital Signs Pulse 78 04/02/23 14:37 BP 118/76 04/02/23 14:37 Pulse Ox 97 04/02/23 14:37 Oxygen Delivery Method Room Air 04/02/23 14:37 BMI result Body Mass Index 30.4 Const Other: Vital signs reviewed. Constitutional: Non-toxic appearing. No acute distress. Well-developed and well-nourished. HEENT: Normocephalic and atraumatic. Skin: Warm and dry. No rashes or lesions noted. Neck: Full and painless range of motion. No cervical lymphadenopathy. Cardio: Regular rate and rhythm. No murmurs, gallops, or rubs. No lower extremity edema. No JVD. Pulmonary: No respiratory distress. No accessory muscle usage. Clear to auscultation bilaterally without wheezing, crackles, or rhonchi. Gastrointestinal: Soft, nontender, and nondistended in all 4 quadrants. Normoactive bowel sounds in all 4 quadrants. Genitourinary: No CVA tenderness. Musculoskeletal: Patient is walking with an antalgic gait. He has a large area of swelling on his right hip area. He has diffuse tenderness to palpation of the right hip as well as the right paraspinal musculature. Neuro: Alert and oriented x4. Cranial nerves 2-12 grossly intact. No focal deficits appreciated. Psych: Normal mood and affect. Assessment & Plan Assessment & Plan (1) Contusion of hip, right: Code(s): S70.01XA - Contusion of right hip, initial encounter Plan: This is a 52-year-old male presenting to the office complaining of right hip pain and right low back pain with radiation into his right leg. This occurred after and mother autocad technician slid into him. On physical examination, patient a large of swelling over his right hip region as well as diffuse tenderness to palpation of the right hip and right paraspinal musculature. I believe patient has a large contusion of his right hip in right side of his low back. The swelling may be causing nerve compression resulting in a lumbar radiculopathy. Patient is able to ambulate though he has an antalgic gait and weight-bearing is painful. He has full strength of the right lower extremity with intact DTRs. Check x-ray of the right hip and x-ray of the lumbar spine. Recommend rest/activity modification, ice/heat to the area, and elevation of the right lower extremity. Continue with acetaminophen/ibuprofen for pain management as long as patient has no medical contraindications. Daily lidocaine 4% patches. PO methocarbamol 750 mg three times daily as needed for muscle spasms. Patient was advised to follow-up here in 3 days if his symptoms do not improve. patient verbalizes understanding and he is in agreement with the plan. I did recommend orthopedic surgery referral as well as a physical therapy referral; however, patient declined and would like to continue symptomatic management and he would like to wait for the x-ray results. patient states he will return to the office if his symptoms do not improve for an orthopedics referral. Orders: Orders XR lumbar spine 2-3V Today M54.50 - Low back pain, unspecified XR hip RT min 2V Today M25.559 - Pain in unspecified hip Medications: New lidocaine 5% leave on most painful area for up to 12 hrs 2 patches topical DAILY 30 ea 0RF lidocaine 4% 1 patch topical DAILY PRN 30 ea 0RF pain methocarbamol 750 mg PO TID PRN 30 tabs 0RF muscle spasm Coding Level of Care Code Est Pt Level 3 (92261) Diagnoses Contusion of hip, right S70.01XA
== END 2023-04-02 15:16 | disposition home or self-care (01) ==
PROVIDERS: PCP Internal Medicine; Visit Provider Physician Assistant Medical
DX: S70.01XA Contusion of right hip, initial encounter (principal)
CPT/HCPCS: 99213

== ENCOUNTER 2023-04-02 14:56 | Outpatient (REF) | payer BC, SELFPAY ==
--- NOTE | ~2023-04-02 | XR_ITS ---
EXAMINATION: XR LUMBOSACRAL SPINE CLINICAL INFORMATION: Low back pain COMPARISON: None available. TECHNIQUE: Three views of the lumbosacral spine. FINDINGS: Normal alignment. 5 lumbar type vertebral bodies are identified and are maintained in height. Lumbosacral facet hypertrophic changes, left greater than right. Pedicles and SI joints within normal limits. XR/XR lumbar spine 2-3V IMPRESSION: Mild lumbosacral degenerative changes.
--- NOTE | ~2023-04-02 | XR_ITS ---
EXAMINATION: XR HIP, RIGHT CLINICAL INFORMATION: Pain COMPARISON: None available. TECHNIQUE: Two views of the right hip. FINDINGS: No fracture. Alignment is anatomic. Hip joint space is maintained. Soft tissues are unremarkable. XR/XR hip RT min 2V IMPRESSION: Normal right hip.
== END 2023-04-02 14:57 | disposition home or self-care (01) ==
LOC: HO.HMGCX 14:56
PROVIDERS: PCP Internal Medicine; Visit Provider Physician Assistant Medical
DX: M25.551 Pain in right hip (principal); M54.50 Low back pain, unspecified
CPT/HCPCS: 72100; 73502

== ENCOUNTER 2023-05-12 15:43 | Outpatient (AMB) | payer BC, SELFPAY ==
--- NOTE | 2023-05-12 15:45 | A.OFFVIS_ITS ---
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 He was last seen in 2019. He has 3 of mitral valve prolapse his severe mitral valve regurgitation diagnosed in 2014. Underwent cardiac catheterization and was found to have no coronary disease underwent mitral valve repair and ring annuloplasty by Dr. Cristina. Previously was seen for dyspnea on exertion. He underwent exercise stress test where he was able to exercise for 12 minutes achieving 13.7 metabolic equivalent Word load. Occasional premature ventricular complexes were noticed but no EKG changes and his perfusion imaging was normal. He had echocardiography previously which showed normal left ventricle systolic function and good mitral valve repair with mild mitral stenosis. Mildly dilated left atrium was also noticed. Right ventricular function was normal. I referred him to pulmonology any saying he saw pulmonology and no obvious cause was found. It appears over the last year he has more shortness of breath. He plays softball and was having trouble running in games. He also had right leg injury doing 1 game during summertime and the leg was bruised and swollen. From his description that breathing slowly got worse to the point that while at work 2 days ago he suddenly became more short of breath than usual and had to go to the emergency department. He was also experiencing left-sided sharp chest pains which was reproducible over the chest wall and musculoskeletal in origin. He had EKG performed which showed right bundle-branch block without any dynamic EKG changes. His high sensitivity troponin levels were negative. he had a D- dimer which was also normal. He was discharged home. He is saying he has had issues with orthopnea at times but not a consistent symptom. No peripheral edema or abdominal distension. he has seen his primary care physician and he was started on benzodiazepines with concern for anxiety. After discussion he was taken for left and right heart catheterization. It did not have any significant coronary disease. He was noticed to have mean gradient across mitral valve 8 mm Hg which improved 4 mm Hg after 2.5 mg of IV metoprolol. The valve area calculation was normal by echocardiography and invasive assessment. His filling pressures otherwise at rest were normal. He was reassured that nothing significant has been found on his cardiac catheterization and he was advised to follow-up with pulmonology to see if we can identify any other cause. He is back for follow-up and is due to see pulmonology. He is saying he has not worked for few weeks now and is feeling good. He is saying he is using lorazepam as needed. 05/12/23: He returns for follow-up. He is saying that he was started on some inhalers and since then he has been doing well. He is following with pulmonology regularly. No chest discomfort. He has noticed that his heart races when he does activity. He has been referred for cardiopulmonary exercise stress testing by pulmonology. Also had blood workup which showed no anemia but did showed mildly elevated BUN. He does not drink a lot of water and probably needs to hydrate himself better. No orthopnea PND. No clinical signs of heart failure. [facility] Medical History (Updated 03/30/23 @ 20:39 by Hiren Barton MD) Chronic restrictive lung disease Tachycardia Pulmonary nodule History of fatty infiltration of liver Pulmonary nodule Hx of mitral valve prolapse Surgical History Hx of cardiac catheterization H/O mitral valve repair Family History Father Medical history unknown Mother Medical history unknown Social History Housing: Apartment Alcohol intake: current Alcohol intake frequency: holidays/special occasions only Patient Tobacco Use Status: Former Tobacco user Quit Date: 2014 Tobacco use type: Cigarette Years Smoked: 20 +/- e-Cigarette/Vaping Use: Never Used Second Hand Smoke Exposure: Yes service: Yes Current occupational status: employed Cognitive needs: No Hearing needs: No Vision needs: No Review of Systems Const Denies weakness ENT Denies dizziness Card Denies chest pain, Denies chest pain with activity, Denies syncope, Denies rapid heart rate, Denies pedal edema, Denies edema, Denies leg edema, Denies lightheadedness, Denies palpitations, Denies dyspnea, Denies dyspnea on exertion and Denies orthopnea Resp Denies cough, Denies dyspnea and Denies dyspnea on exertion GI Denies hematochezia and Denies change in stool character Musc Denies abnormal gait, Denies muscle cramps, Denies muscle weakness, Denies numbness, Denies radiating pain into limb and Denies tingling Neuro Denies abnormal gait, Denies dizziness, Denies syncope, Denies numbness, Denies tingling and Denies weakness Endo Denies palpitations Physical Exam Vital Signs: Last Vital Signs Pulse 90 05/12/23 15:46 BP 124/76 05/12/23 15:46 BMI result Body Mass Index 30.1 GENERAL APPEARANCE: in no acute distress, pleasant. NECK: no carotid bruit, no jugular venous distention. SKIN: no suspicious lesions, warm and dry. HEART: no murmurs, regular rate and rhythm. LUNGS: clear to auscultation bilaterally. ABDOMEN: soft, nontender. EXTREMITIES: no edema. PERIPHERAL PULSES: equal. NEUROLOGIC: No gross deficits, AAO X 3 Office Procedures EKG Details: Sinus rhythm 90 beats per minute, normal axis, right bundle-branch block, QTC 477 milliseconds. [id number], Complete Assessment & Plan Assessment & Plan (1) Dyspnea: Code(s): R06.00 - Dyspnea, unspecified Qualifiers: Dyspnea type: dyspnea on exertion Qualified Code(s): R06.09 - Other forms of dyspnea Plan 52-year-old gentleman here for follow-up. He was seen for dyspnea on exertion. He underwent cardiac catheterization which did not show any coronary disease. Mitral valve area calculation by invasive assessment as well as echocardiography was normal. He has background of mitral valve prolapse and previous repair with ring annuloplasty. He was referred to pulmonology and was started on some inhalers and has been doing well. He continues to get some dyspnea and is going to get cardiopulmonary exercise stress testing to see whether it is more of a cardiac issue versus pulmonary versus deconditioning which is causing his dyspnea. He also has some tachycardia with ambulation and his heart rate goes up quickly which usually is a sign of deconditioning but sometime also sign of dehydration. I have advised him to start hydrating himself better. We will arrange a repeat echocardiogram to reassess the mitral valve and right ventricular function. Thank you for allowing me to participate in the care of your patient. Please feel free to contact me if you have any questions. Orders: Orders CA echo transthoracic complete Today R06.09 - Other forms of dyspnea Coding Level of Care Code Est Pt Level 4 (89236) Diagnoses Dyspnea on exertion R06.09 Dyspnea type: dyspnea on exertion CPT Codes EKG - CPT: 03482-[id number], Complete ([id number])
[2023-05-12 15:46] VITALS: BP 124/76; PULSE 90; BMI 30.1
== END 2023-05-12 16:17 | disposition home or self-care (01) ==
PROVIDERS: PCP Internal Medicine; Visit Provider Internal Medicine Cardiovascular Disease
DX: R06.09 Other forms of dyspnea (principal)
CPT/HCPCS: 93010; 99214

== ENCOUNTER → 2023-05-12 15:43 | Outpatient (BNVA) | payer BC, SELFPAY | PROVIDERS: PCP Internal Medicine; Visit Provider Internal Medicine Cardiovascular Disease | DX: R06.09 Other forms of dyspnea (principal) | CPT/HCPCS: 93005 ==

== ENCOUNTER 2023-05-27 15:43 | Outpatient (AMB) | payer BC, SELFPAY ==
[2023-05-27 15:51] VITALS: PULSE 89; O2SAT 95; BMI 29.2
--- NOTE | 2023-05-27 15:51 | MHC.OFFVIS ---
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 The patient states that he has been developing worsening shortness of breath for the last several months. Seems to be getting worse. He is having hard time playing softball with his team. The shortness breath is mainly with activity [id number] severity. Although he has also noticed that is happening with rest as well. He had 1 occasion when he was at work and he had some shortness of breath he had to step out because he was having hard time breathing. He does not use any inhalers at this time. 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 Therefore he was referred to Pulmonary. In the office we did taken for with brief walking oximetry. The patient ambulated well his dyspnea score was 5/10 in his heart rate went up to about 125 with minimal activity. His pulse ox was reassuring are 98%. 10/20/2022 the patient is here for a pulmonary follow-up visit. Still complaining of shortness of breath with exercise activity. He can go for walks but when he does any extraneous he will have significant shortness of breath. He is playing softball and is hard for him to raise to for space or even to be able to pitch for full gain. The patient did try the rescue inhaler prior to his exercise activity but did not see any significant improvement. We did review his pulmonary function studies actually demonstrating a mild restrictive ventilatory defect. Explained to him that this is likely from his surgical procedure. In addition to that he did have a CT scan of the chest that we personally reviewed demonstrating minimal degree of emphysema and small pulmonary nodules. The patient does have a new 2 mm pulmonary nodule that will need follow-up. Patient was reassured that the nodules are small and do not concerning. He is concerned the fact that there is a positive family history of lung cancer. Will go ahead and repeat the CT scan a year's time. In the meantime will try to maximize his respiratory capacity by given him Breyesicatri. I am hopeful that he feels better with this inhaler. If however he does not feel better then he will call the office and will request an order for V/Q scan in order to assess for chronic thromboembolic disease and also consider a cardiopulmonary exercise tolerance test to further address his dyspnea symptoms. 03/30/2023 the patient is here for a pulmonary follow-up visit. The patient continues to have significant dyspnea on exertion. The patient did take deep breaths tree inhaler but did not seen any significant improvement. Moderate shortness of breath with minimal activity. The patient is frustrated because he has a hard time doing the things that he enjoys. We again to come for 6 minutes walk test. Again became dyspneic specially going up stairs but is heart rate went up to 125 his pulse ox was stable. Therefore will optimize his respiratory therapy but I explained to him that the reason that he does not respond to the inhalers as because this likely a cardiac component to his breathing. His last echocardiogram did have some mild mitral stenosis after his mitral valve surgery. Also demonstrates to have a decreased function in the right ventricle. Again, the patient did have a right heart catheterization in addition to a left heart catheterization which was overall reassuring. Therefore, will request a cardiopulmonary exercise tolerance test to better address the issue. Will also request blood work including a D-dimer. If the D-dimer is elevated will request additional testing to assess for the possibility of thromboembolic disease although this is less likely. 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 Sometimes they do a lot of metal grinding. He does not wear a mask. We did talk about trying to minimize exposure specially to inorganic dust that may ultimately worsen his breathing. I did provide him a peak flow that he can use pre and post work to see if there is any occupational hazards. 05/27/2023 the patient is here for a pulmonary follow-up visit. Overall the patient has been doing well. Still has some dyspnea on exertion. [id number] severity. He is using the Trelegy inhaler. He is finding it partially helpful. He is also following closely with Cardiology. He has additional testing coming up soon. The patient had to reschedule the CPET because of are limited schedule. Hopefully he can have done the next few weeks. Patient also been monitoring closely his exposures while working with in organic dust. We did also review his blood work. Appears that his allergy testing demonstrates significant dust mites. He does have rugs at home. He states that he traveled down to [place] while he was there his breathing was a lot better. Explained to him that likely a combination of occupational asthma in addition to living in the [place] that make it difficult for him with his breathing. Therefore he should continue with respiratory therapy. Will follow-up in the springtime if he develops any worsening symptoms prior to that he will call the office for an earlier assessment. In addition to that his last CT scan demonstrated some new pulmonary nodules and he will need a follow-up CT scan as well. [facility] Medical History (Updated 05/27/23 @ 22:03 by Hiren Barton MD) Asthma Chronic restrictive lung disease Tachycardia Pulmonary nodule History of fatty infiltration of liver Pulmonary nodule Hx of mitral valve prolapse Surgical History Hx of cardiac catheterization H/O mitral valve repair Family History Father Medical history unknown Mother Medical history unknown Social History Housing: Apartment Alcohol intake: current Alcohol intake frequency: holidays/special occasions only Patient Tobacco Use Status: Former Tobacco user Quit Date: 2014 Tobacco use type: Cigarette Years Smoked: 20 +/- e-Cigarette/Vaping Use: Never Used Second Hand Smoke Exposure: Yes service: Yes Current occupational status: employed Cognitive needs: No Hearing needs: No Vision needs: No Review of Systems Const Denies weakness ENT Denies dizziness Card Denies chest pain, Denies chest pain with activity, Denies syncope, Denies rapid heart rate, Denies pedal edema, Denies edema, Denies leg edema, Denies lightheadedness, Denies palpitations, Denies dyspnea, Denies dyspnea on exertion and Denies orthopnea Resp Denies cough, Denies dyspnea and Denies dyspnea on exertion GI Denies hematochezia and Denies change in stool character Musc Denies abnormal gait, Denies muscle cramps, Denies muscle weakness, Denies numbness, Denies radiating pain into limb and Denies tingling Neuro Denies abnormal gait, Denies dizziness, Denies syncope, Denies numbness, Denies tingling and Denies weakness Endo Denies palpitations Physical Exam Vital Signs: Last Vital Signs Pulse 89 05/27/23 15:51 Pulse Ox 95 05/27/23 15:51 Oxygen Delivery Method Room Air 05/27/23 15:51 BMI result Body Mass Index 29.2 Results Reviewed Results Reviewed: [address] [address] [address] Scan Report Signed Patient: Mikael Mann MR#: [id number] : 1970 Acct:[id number] Age/Sex: 51 / M ADM Date: 07/06/22 Loc: HO.CT Attending Dr: Hiren Barton MD Ordering Physician: Hiren Barton MD Date of Service: 07/06/22 Procedure(s): CT chest wo IV con Accession Number(s): [id number] cc: Hiren Barton MD~ EXAMINATION: CT CHEST WITHOUT CONTRAST CLINICAL INFORMATION: Follow-up pulmonary nodule COMPARISON: Previous chest CT scans most recent October 2020 TECHNIQUE: Multidetector volumetric CT imaging of the chest was done. Axial MIP volume rendering provided. Sagittal and coronal reformatted images were obtained. This CT examination was performed using dose optimization techniques as appropriate, variously including the following: *Automated exposure control *Adjustment of mA and/or kV according to patient size (this includes techniques or standardized protocols for targeted exams where dose is matched to indication/reason for exam; i.e. extremities or head) *Use of iterative reconstruction technique DLP: 376 mGy-cm FINDINGS: RAT POISONER: LUNGS: 2 mm left lower lobe nodule axial image 373 series 5 is stable. There is a 2 mm superior segment right lower lobe nodule axial image 210 series 5 that is new. No other new pulmonary nodules. There is evidence of mild paraseptal emphysema. No endobronchial or endotracheal lesion. MEDIASTINUM: Normal heart size. Question mitral valve replacement. No pericardial effusion. Normal caliber thoracic aorta. No hilar or mediastinal lymphadenopathy. CORONARY ARTERY CALCIFICATION: None visualized on this study. PLEURA: There is no pleural effusion. No pleural mass or thickening. AXILLA: No lymphadenopathy. UPPER ABDOMEN: Unremarkable. OSSEOUS STRUCTURES: Median sternotomy wires. Degenerative changes of the spine and several stable hemangiomas.. CT/CT chest wo IV con IMPRESSION: Stable 2 mm left lower lobe nodule. New 2 mm superior segment right lower lobe nodule. According to the UPDATED 2017 Fleischner Society recommendations, the advised follow-up imaging for less than 6 mm solid nodule: Low risk, no chest CT follow-up and high risk, optional chest CT follow-up in one year Fleischner guidelines were followed. Dictated By: Christa Merida MD Signed By: <Electronically signed by Christa Merida MD in OV> 07/09/22 1043 DD/ 1659 TD/TT: Asset Protection Greeter: ROSA Assessment & Plan Assessment & Plan (1) Pulmonary nodule: Code(s): R91.1 - Solitary pulmonary nodule (2) Dyspnea: Code(s): R06.00 - Dyspnea, unspecified Qualifiers: Dyspnea type: dyspnea on exertion Qualified Code(s): R06.09 - Other forms of dyspnea (3) Tachycardia: Code(s): R00.0 - Tachycardia, unspecified (4) Chronic restrictive lung disease: Code(s): J98.4 - Other disorders of lung (5) Asthma: Comment: Accupational, environmental Code(s): J45.909 - Unspecified asthma, uncomplicated Qualifiers: Asthma severity: moderate Asthma persistence: persistent Asthma complication type: uncomplicated Qualified Code(s): J45.40 - Moderate persistent asthma, uncomplicated Plan continue Trelegy 200 MICAELA as needed peak flow pre and post work CPET CT chest Spring 2023 F/U Spring 2023 Orders: Orders CT chest wo IV con 4 Months R91.1 - Solitary pulmonary nodule Coding Level of Care Code Est Pt Level 4 (86857) Diagnoses Pulmonary nodule R91.1 Dyspnea on exertion R06.09 Dyspnea type: dyspnea on exertion Tachycardia R00.0 Chronic restrictive lung disease J98.4 Moderate persistent asthma without complication J45.40 Asthma severity: moderate Asthma persistence: persistent Asthma complication type: uncomplicated Time Spent (min) 17
== END 2023-05-27 16:08 | disposition home or self-care (01) ==
PROVIDERS: PCP Internal Medicine; Visit Provider Hospitalist
DX: R91.1 Solitary pulmonary nodule (principal); R06.09 Other forms of dyspnea; R00.0 Tachycardia, unspecified; J98.4 Other disorders of lung; J45.40 Moderate persistent asthma, uncomplicated
CPT/HCPCS: 99214

== ENCOUNTER → 2023-05-27 15:43 | Outpatient (BNVA) | payer BC, SELFPAY | PROVIDERS: PCP Internal Medicine; Visit Provider Hospitalist ==

== ENCOUNTER → 2023-06-03 14:41 | Outpatient (REF) | payer BC, SELFPAY ==
--- NOTE | 2023-06-03 14:43 | CA_ITS ---
Transthoracic Echocardiogram Patient (Last, First, Middle): Mikael Mann T Gender: Male Date of : 1970 Age: 52 Procedure Date: 06/03/2023 Procedure Type: Transthoracic Echocardiogram Location: OP Height: 182.88 cm Weight: 99.79 kg BSA: 2.22 m2 Heart Rate: bpm BP: 118 / 70 mmHg [employer] Starter: TO Referring MD: Santo Newberry MD Health Services Information Specialist: Jorge Otero MD Symptoms: R06.09 - Other forms of dyspnea Study Quality: Fair/Contrast ECG Rhythm: Sinus Conclusions: - 1. Low normal LV ejection fraction with impaired relaxation filling pattern 2. Good mitral valve repair 3. Normal RV systolic pressure 4. No gross pericardial effusion Findings Procedure Information Contrast agent, definity, is being given per protocol without apparent complications. Left Ventricle Normal left ventricular cavity size. There is normal left ventricular wall thickness. The left ventricular systolic function is low normal. The visually estimated ejection fraction is between 50-55%. There is paradoxical septal motion consistent with post-operative status. Spectral Doppler is indicative of an impaired relaxation filling pattern. mild focal basal septal hypertrophy noted without any evidence of obstruction Right Ventricle Mildly increased right ventricular cavity size. There is low normal right ventricular systolic function. Atria The left atrium is likely dilated. There is no evidence of interatrial shunt. The right atrium is likely dilated. Aortic Valve Normal aortic valve structure and function. There is no aortic valve stenosis. There is no aortic valve regurgitation. Mitral Valve There is mild anterior and severe posterior mitral leaflet thickening. The posterior mitral leaflet is immobile. There is no mitral valve regurgitation. posterior leaflet is thickened and immobile consistent with possibly prior resection and repair along with bright annular shadows consistent with annuloplasty ring Pulmonic Valve The pulmonic valve is likely normal. Tricuspid Valve Normal tricuspid valve structure. There is trace tricuspid valve regurgitation. The right ventricular systolic pressure is normal. The right ventricular systolic pressure is 20 mmHg. Normal right atrial pressure. There is no evidence of pulmonary hypertension. Great Vessels All visible segments of the aorta are normal in size. The pulmonary artery was not well visualized. Venous The inferior vena cava is normal in size and collapses greater than 50% with inspiration. Pericardium/Pleural There is no evidence of pericardial effusion. Measurements 2D Linear Measurements IVSd: 1.46 0.6-0.9/0.6-1.0 cm LVIDd: 3.91 3.9-5.3/4.2-5.9 cm LVIDd Index: 1.76 2.4-3.2/2.2-3.1 cm/m2 LVIDs: 2.64 2.0-3.6 cm LVPWd: 1.09 0.7-1.1 cm LA Diam: 3.50 2.7-3.8/3.0-4.0 cm LAIDs Index: 1.58 1.5-2.3 cm/m2 LV Mass: 218.20 67-162/88-224 g LV Mass Index: 98.29 43-95/49-115 g/m2 LVOT Diam: 2.60 3.0+(-)1.3 cm 2D Systolic Function EF 4C: 50.80 >55% EF 2C: 56.20 >55% EF BiP: 53.60 >55% Mitral Valve MV VTI: 0.45 MV Pk Gadiel: 2.18 MV Mn Gadiel: 1.50 MV Pk Grad: 19.00 MV Mn Grad: 10.00 MV Pk E: 1.50 MV PK A: 1.75 MV Decel Time: 158.00 E/A: 0.90 E'Lateral: 6.09 E'Medial: 6.20 E/E' Med: 24.20 E/E' Lat: 24.60 PHT: 46.00 MVA PHT: 4.78 MVA Continuity: 2.45 Decel Lajas: 9.47 Aortic Valve AoV Pk Gadiel: 1.39 AoV Mn Gadiel: 1.00 AoV VTI: 0.25 AoV Pk Grad: 8.00 Aov Mn Grad: 4.00 JENNIFER Cont.VTI: 4.40 LVOT LVOT Pk Gadiel: 1.00 LVOT Mn Gadiel: 0.71 LVOT VTI: 0.21 LVOT Pk Grad: 4.00 LVOT Mn Grad: 2.00 LVOT Diam: 2.60 LVOT Area: 5.31 Diastolic Function MV Pk E: 1.50 MV Pk A: 1.75 E/A: 0.90 E'Medial: 6.20 E/E' Med: 24.20 E' Laterial: 6.09 E/E' Lat: 24.60 Right Ventricle TAPSE (mm): 17.80 TVS' Gadiel: 9.78 Tricuspid Valve TR Pk Gadiel: 2.08 TR Pk Grad: 17.00 RA Press: 3.00 RVSP: 20.00 Great Vessels Aorta Sinus of Valsalva: 3.73 2.0-3.5 cm Ao Asc: 3.30 2.1-3.4 cm Updated in Other Vendor System with Status of Final Jorge Otreo MD electronically signed on 06/04/2023 9:13:04 AM with status of Final
== END ==
LOC: HO.CARD 14:41
PROVIDERS: PCP Internal Medicine; Visit Provider Internal Medicine Cardiovascular Disease
DX: R06.09 Other forms of dyspnea (principal)
CPT/HCPCS: 93306; Q9957

== ENCOUNTER → 2023-06-03 14:43 | Outpatient (BNV) | payer BC, SELFPAY | PROVIDERS: PCP Internal Medicine; Visit Provider Internal Medicine Cardiovascular Disease | DX: I34.89 Other nonrheumatic mitral valve disorders (principal) | CPT/HCPCS: 93306 ==

== ENCOUNTER 2023-06-19 10:08 | Outpatient (AMB) | payer BC, SELFPAY ==
--- NOTE | 2023-06-19 10:51 | AM.OFFWIN_ITS ---
Intake Vital Signs 06/19/23 10:52 Height 6 ft Weight 223 lb BMI 30.2 BP 120/72 Blood Pressure Location Lt brachial Position Sitting Pulse 98 Pulse Source Pulse Oximeter Temp 99.3 F Temp Source Oral Pulse Oximetry (%) 97 Oxygen Delivery Method Room Air Intake Visit Reasons: EP Chest Cold Intake Note: Patient is here with chest cold since Wednesday, getting worse, with hard time breathing. Patient Tobacco Use Status: Former Tobacco user Quit Date: 2014 Allergies No Known Allergies Allergy (Verified 06/19/23 11:18) Medication List - Last Reconciled 06/19/23 by Bethanie Granados CNP albuterol sulfate 90 mcg/actuation 2 inhalations inhalation Q6H PRN 30 days aspirin 81 mg PO DAILY [id number] 200-62.5-25 mcg (Trelegy Ellipta) 1 inh inhalation DAILY 30 days methocarbamol 750 mg PO TID PRN Do you need a note to return to daycare/school/sports/work: Yes HPI HPI Comments History of Present Illness Details 52-year-old male presents to walk-in [facility] with complaint of chest cold x3 days progressing to SOB, Cough, expectorating tannish colored sputum, chest tightness with cough,and fever. He denies known sick contact, recent travel, and endorses home covid test yesterday was negative. He also denies chills, headache, CP, sinus pressure, dizziness, abdominal pain, nausea, vomiting, changes in bowels or bladder. He is concerned he may have pneumonia due to his history of heart condition. Review of previous note with [facility]; He has had 3 of mitral valve prolapse his severe mitral valve regurgitation diagnosed in 2014. Underwent cardiac catheterization and was found to have no coronary disease underwent mitral valve repair and ring annuloplasty by Dr. Cristina. Previously was seen for dyspnea on exertion. He underwent exercise stress test where he was able to exercise for 12 minutes achieving 13.7 metabolic equivalent Word load. Occasional premature ventricular complexes were noticed but no EKG changes and his perfusion imaging was normal. He had echocardiography previously which showed normal left ventricle systolic function and good mitral valve repair with mild mitral stenosis. Mildly dilated left atrium was also noticed. Right ventricular function was normal. he saw pulmonology and no obvious cause was found. It appears over the last year he has more shortness of breath, was started on Benzodiazepam by his PCP Dr. William, which Mikael admits his SOB was better up until this . [facility] Medical History Asthma Chronic restrictive lung disease Tachycardia Pulmonary nodule History of fatty infiltration of liver Pulmonary nodule Hx of mitral valve prolapse Surgical History Hx of cardiac catheterization H/O mitral valve repair Family History Father Medical history unknown Mother Medical history unknown Social History Housing: Apartment Alcohol intake: current Alcohol intake frequency: holidays/special occasions only Patient Tobacco Use Status: Former Tobacco user Quit Date: 2014 Tobacco use type: Cigarette Years Smoked: 20 +/- e-Cigarette/Vaping Use: Never Used Second Hand Smoke Exposure: Yes service: Yes Current occupational status: employed Cognitive needs: No Hearing needs: No Vision needs: No Review of Systems Const All systems reviewed & are unremarkable except as noted in HPI and below Physical Exam Vital Signs: Last Vital Signs Temp 99.3 F 06/19/23 10:52 Pulse 98 06/19/23 10:52 BP 120/72 06/19/23 10:52 Pulse Ox 97 06/19/23 10:52 Oxygen Delivery Method Room Air 06/19/23 10:52 BMI result Body Mass Index 30.2 Const General: cooperative and no acute distress Nutritional Appearance: well nourished Orientation/consciousness: patient oriented x3 Limitations: no limitations HEENT Head: Yes normal to inspection, Yes normocephalic and Yes atraumatic Ears: hearing grossly normal bilaterally and TM's normal bilaterally General nose exam: Normal nasal mucous membranes and turbinates present Face and sinus: Yes normal facial exam and Yes sinuses nontender Mouth: moist mucous membranes Throat: Yes posterior oropharynx abnormal (erythematous, non displaced uvula, no whitish spots) Eyes General: appearance normal, both eyes and all related structures Neck Neck: Yes normal visual inspection, Yes no meningeal signs, Yes trachea midline and Yes lymphadenopathy (bilateral anterior cervical, small soft, and moveable) Carotids: normal carotid upstroke Chest Chest palpation & inspection: normal inspection of the chest, no crepitus and no tenderness Resp Effort & Inspection: normal respiratory effort, Actively coughing Quality: productive (purulent ), no respiratory distress, no retractions, not tachypneic and no tracheal deviation Auscultation: rhonchi upper bilaterally (lower lungs clear to auscultation, no wheezes auscultated) Cardio Rate: regular rate Rhythm: regular rhythm Heart sounds: S1 normal heart sound present and S2 normal heart sound present Peripheral pulses: Peripheral pulses 2+ throughout GI Inspection: Yes normal to inspection Palpation (GI): Soft to palpation, nontender and No Rebound tenderness present Percussion: Yes normal to percussion Auscultation: normal bowel sounds Skin General skin exam: no rashes or lesions noted, elasticity normal and turgor normal Neuro General: patient oriented x3, gait normal, moves all extremities, no meningeal signs and no focal motor deficits Extrem General: Yes normal to inspection, Yes capillary refill normal and Yes no clubbing, cyanosis or edema Psych Appearance: well kempt Speech and movement: Normal speech and movement present Affect: normal affect Attitude: cooperative Assessment & Plan Assessment & Plan (1) Upper respiratory infection: Code(s): J06.9 - Acute upper respiratory infection, unspecified Qualifiers: URI type: unspecified URI Qualified Code(s): J06.9 - Acute upper respiratory infection, unspecified Plan: 52-year-old male with history of mitral valve repair, seen in walk-in clinic with complaint of chest cold x3 days progressing to SOB, Cough, expectorating tannish colored sputum, chest tightness with cough,and fever. Symptoms indicative of URI. Will treat empirically with amoxicillin 500 mg po bid x 7 days, encouraged to take with food or milk to reduce GI upset. Mucinex 600 mg po bid to help break up chest congestion and prevent pneumonia. Medications: New guaifenesin ER (Mucinex) 600 mg PO BID 14 tabs 0RF J06.9 - Acute upper respiratory infection, unspecified amoxicillin 500 mg PO BID 14 caps 0RF J06.9 - Acute upper respiratory infection, unspecified Coding Level of Care Code Est Pt Level 3 (28150) Diagnoses Upper respiratory tract infection, unspecified type J06.9 URI type: unspecified URI
[2023-06-19 10:52] VITALS: BP 120/72; PULSE 98; TEMP 37.4; O2SAT 97; BMI 30.2
== END 2023-06-19 11:31 | disposition home or self-care (01) ==
PROVIDERS: PCP Internal Medicine; Visit Provider Nurse Practitioner Acute Care
DX: J06.9 Acute upper respiratory infection, unspecified (principal)
CPT/HCPCS: 99213

== ENCOUNTER 2023-08-24 15:41 | Outpatient (AMB) | payer BC, SELFPAY ==
[2023-08-24 15:44] VITALS: BP 111/67; PULSE 92; O2SAT 96; BMI 30.6
--- NOTE | 2023-08-24 15:44 | A.OFFVIS_ITS ---
Intake Vital Signs 08/24/23 15:44 Height 6 ft Weight 225 lb 15.581 oz BMI 30.6 BP 111/67 Blood Pressure Location Rt brachial Position Sitting Pulse 92 Pulse Source Doppler Pulse Oximetry (%) 96 Oxygen Delivery Method Room Air Intake Visit Reasons: Dyspnea Allergies No Known Allergies Allergy (Verified 08/24/23 15:46) HPI HPI Comments History of Present Illness Details The patient is a 52-year-old gentleman with a known mitral valve disease status post surgery back in 2014. The patient states that he has been developing worsening shortness of breath for the last several months. Seems to be getting worse. He is having hard time playing softball with his team. The shortness breath is mainly with activity [id number] severity. Although he has also noticed that is happening with rest as well. He had 1 occasion when he was at work and he had some shortness of breath he had to step out because he was having hard time breathing. He does not use any inhalers at this time. 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 Therefore he was referred to Pulmonary. In the office we did taken for with brief walking oximetry. The patient ambulated well his dyspnea score was 5/10 in his heart rate went up to about 125 with minimal activity. His pulse ox was reassuring are 98%. 10/20/2022 the patient is here for a pulm onary follow-up visit. Still complaining of shortness of breath with exercise activity. He can go for walks but when he does any extraneous he will have significant shortness of breath. He is playing softball and is hard for him to raise to for space or even to be able to pitch for full gain. The patient did try the rescue inhaler prior to his exercise activity but did not see any significant improvement. We did review his pulmonary function studies actually demonstrating a mild restrictive ventilatory defect. Explained to him that this is likely from his surgical procedure. In addition to that he did have a CT scan of the chest that we personally reviewed demonstrating minimal degree of emphysema and small pulmonary nodules. The patient does have a new 2 mm pulmonary nodule that will need follow-up. Patient was reassured that the nodules are small and do not concerning. He is concerned the fact that there is a positive family history of lung cancer. Will go ahead and repeat the CT scan a year's time. In the meantime will try to maximize his respiratory capacity by given him Breyesicatri. I am hopeful that he feels better with this inhaler. If however he does not feel better then he will call the office and will request an order for V/Q scan in order to assess for chronic thromboembolic disease and also consider a cardiopulmonary exercise tolerance test to further address his dyspnea symptoms. 03/30/2023 the patient is here for a pulmonary follow-up visit. The patient continues to have significant dyspnea on exertion. The patient did take deep breaths tree inhaler but did not seen any significant improvement. Moderate shortness of breath with minimal activity. The patient is frustrated because he has a hard time doing the things that he enjoys. We again to come for 6 minutes walk test. Again became dyspneic specially going up stairs but is heart rate went up to 125 his pulse ox was stable. Therefore will optimize his respiratory therapy but I explained to him that the reason that he does not respond to the inhalers as because this likely a cardiac component to his breathing. His last echocardiogram did have some mild mitral stenosis after his mitral valve surgery. Also demonstrates to have a decreased function in the right ventricle. Again, the patient did have a right heart catheterization in addition to a left heart catheterization which was overall reassuring. Therefore, will request a cardiopulmonary exercise tolerance test to better address the issue. Will also request blood work including a D-dimer. If the D-dimer is elevated will request additional testing to assess for the possibility of thromboembolic disease although this is less likely. 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 Sometimes they do a lot of metal grinding. He does not wear a mask. We did talk about trying to minimize exposure specially to inorganic dust that may ultimately worsen his breathing. I did provide him a peak flow that he can use pre and post work to see if there is any occupational hazards. 05/27/2023 the patient is here for a pulmonary follow-up visit. Overall the patient has been doing well. Still has some dyspnea on exertion. Yqql-mo-txqsuxwg severity. He is using the Trelegy inhaler. He is finding it partially helpful. He is also following closely with Cardiology. He has additional testing coming up soon. The patient had to reschedule the CPET because of are limited schedule. Hopefully he can have done the next few weeks. Patient also been monitoring closely his exposures while working with in organic dust. We did also review his blood work. Appears that his allergy testing demonstrates significant dust mites. He does have rugs at home. He states that he traveled down to [place] while he was there his breathing was a lot better. Explained to him that likely a combination of occupational asthma in addition to living in the [place] that make it difficult for him with his breathing. Therefore he should continue with respiratory therapy. Will follow- up in the springtime if he develops any worsening symptoms prior to that he will call the office for an earlier assessment. In addition to that his last CT scan demonstrated some new pulmonary nodules and he will need a follow-up CT scan as well. 08/24/2023 the patient is here for a pulmo nary follow-up visit. He continues dyspnea on exertion. Vury-ia-dxzhnvvi severity. We did try the trilogy inhaler without any significant improvement. He also has a rescue inhaler that he has not use although he does carry in case. The patient does have the occupational exposures likely resulting in his breathing symptoms intermittently. In ad dition to that he did undergo a cardiopulmonary exercise tolerance test to further assess the exercise limitations in view of his cardiac and pulmonary issues. The patient did very well from a pulmonary standpoint. His pulmonary reserve was excellent and then not have a pulmonary limitation to exercise. He did reach his predicted exercise capacity. Although his oxygen pulse was a little bit on the low side suggesting the potential cardiovascular limitation. The patient does have diastolic dysfunction and may indeed have a decreasing ejection fraction with exercise based on the O2 pulse. I did encourage him to start exercise program as he is doing very well from a pulmonary and also a cardiac standpoint. He may be able to improve his stroke volume and cardiac output. The patient also had a CT scan of the chest done back in June. He did have a new 2 mm pulmonary nodules and small. Will plan to repeat imaging studies sometime in the fall 2023. Will follow-up in 6-12 months unless the patient develops any worsening symptoms he is to call the office for an earlier assessment. [facility] Medical History Asthma Chronic restrictive lung disease Tachycardia Pulmonary nodule History of fatty infiltration of liver Pulmonary nodule Hx of mitral valve prolapse Surgical History Hx of cardiac catheterization H/O mitral valve repair Family History Father Medical history unknown Mother Medical history unknown Social History Housing: Apartment Alcohol intake: current Alcohol intake frequency: holidays/special occasions only Patient Tobacco Use Status: Former Tobacco user Quit Date: 2014 Tobacco use type: Cigarette Years Smoked: 20 +/- e-Cigarette/Vaping Use: Never Used Second Hand Smoke Exposure: Yes service: Yes Current occupational status: employed Cognitive needs: No Hearing needs: No Vision needs: No Review of Systems Const Denies weakness ENT Denies dizziness Card Denies chest pain, Denies chest pain with activity, Denies syncope, Denies rapid heart rate, Denies pedal edema, Denies edema, Denies leg edema, Denies lightheadedness, Denies palpitations, Denies dyspnea, Reports dyspnea on exertion and Denies orthopnea Resp Denies cough, Denies dyspnea and Reports dyspnea on exertion GI Denies hematochezia and Denies change in stool character Musc Denies abnormal gait, Denies muscle cramps, Denies muscle weakness, Denies numbness, Denies radiating pain into limb and Denies tingling Neuro Denies abnormal gait, Denies dizziness, Denies syncope, Denies numbness, Denies tingling and Denies weakness Endo Denies palpitations Physical Exam Vital Signs: Last Vital Signs Pulse 92 08/24/23 15:44 BP 111/67 08/24/23 15:44 Pulse Ox 96 08/24/23 15:44 Oxygen Delivery Method Room Air 08/24/23 15:44 BMI result Body Mass Index 30.6 Const General: comfortable HEENT Head: Yes normal to inspection Eyes General: appearance normal, both eyes and all related structures Neck Neck: Yes supple Chest Chest palpation & inspection: normal inspection of the chest Resp Effort & Inspection: normal respiratory effort Auscultation: clear to auscultation bilaterally Cardio Rate: regular rate Rhythm: regular rhythm Heart sounds: S1 normal heart sound present and S2 normal heart sound present GI Auscultation: normal bowel sounds Skin General skin exam: no rashes or lesions noted Extrem General: Yes no clubbing, cyanosis or edema Results Reviewed Results Reviewed: Mikael Mann??52??M??1970 ? Allergy/Adv: No Known Allergies Close Lumbar Spine X-Ray (Signed) Dorcas Solis - 04/02/23 Hip X-Ray (Signed) Christa Merida - 04/02/[address] (Signed) Christa Merida - 07/06/22 Chest CTA (Signed) Nadeem Lee - 11/11/20 Chest X-Ray (Signed) Dimas Escobar - 11/11/20 Launch?Image [address] [address] [address] Scan Report Signed Patient: Mikael Mann MR#: [id number] : 1970 Acct:[id number] Age/Sex: 51 / M ADM Date: 07/06/22 Loc: HO.CT Attending Dr: Hiren Barton MD Ordering Physician: Hiren Barton MD Date of Service: 07/06/22 Procedure(s): CT chest wo IV con Accession Number(s): [id number] cc: Hiren Barton MD~ EXAMINATION: CT CHEST WITHOUT CONTRAST CLINICAL INFORMATION: Follow-up pulmonary nodule COMPARISON: Previous chest CT scans most recent October 2020 TECHNIQUE: Multidetector volumetric CT imaging of the chest was done. Axial MIP volume rendering provided. Sagittal and coronal reformatted images were obtained. This CT examination was performed using dose optimization techniques as appropriate, variously including the following: *Automated exposure control *Adjustment of mA and/or kV according to patient size (this includes techniques or standardized protocols for targeted exams where dose is matched to indication/reason for exam; i.e. extremities or head) *Use of iterative reconstruction technique DLP: 376 mGy-cm FINDINGS: ASSOCIATE DIRECTOR FINANCIAL AID: LUNGS: 2 mm left lower lobe nodule axial image 373 series 5 is stable. There is a 2 mm superior segment right lower lobe nodule axial image 210 series 5 that is new. No other new pulmonary nodules. There is evidence of mild paraseptal emphysema. No endobronchial or endotracheal lesion. MEDIASTINUM: Normal heart size. Question mitral valve replacement. No pericardial effusion. Normal caliber thoracic aorta. No hilar or mediastinal lymphadenopathy. CORONARY ARTERY CALCIFICATION: None visualized on this study. PLEURA: There is no pleural effusion. No pleural mass or thickening. AXILLA: No lymphadenopathy. UPPER ABDOMEN: Unremarkable. OSSEOUS STRUCTURES: Median sternotomy wires. Degenerative changes of the spine and several stable hemangiomas.. CT/CT chest wo IV con IMPRESSION: Stable 2 mm left lower lobe nodule. New 2 mm superior segment right lower lobe nodule. According to the UPDATED 2017 Fleischner Society recommendations, the advised follow-up imaging for less than 6 mm solid nodule: Low risk, no chest CT follow-up and high risk, optional chest CT follow-up in one year Fleischner guidelines were followed. Dictated By: Christa Merida MD Signed By: <Electronically signed by Christa Merida MD in OV> 07/09/22 1043 DD/ 1659 TD/TT: Sales Director: ROSA Assessment & Plan Assessment & Plan (1) Pulmonary nodule: Code(s): R91.1 - Solitary pulmonary nodule (2) Dyspnea: Comment: multifactorial. Based on the CPET appears to have a cardiovascular limitation. Code(s): R06.00 - Dyspnea, unspecified Qualifiers: Dyspnea type: dyspnea on exertion Qualified Code(s): R06.09 - Other forms of dyspnea (3) Tachycardia: Code(s): R00.0 - Tachycardia, unspecified (4) Chronic restrictive lung disease: Code(s): J98.4 - Other disorders of lung (5) Asthma: Comment: Accupational, environmental Code(s): J45.909 - Unspecified asthma, uncomplicated Qualifiers: Asthma complication type: uncomplicated Asthma persistence: persistent Asthma severity: moderate Qualified Code(s): J45.40 - Moderate persistent asthma, uncomplicated Plan start exercise regimen without any restrictions stop Trelegy 200 MICAELA as needed peak flow pre and post work CT chest January 2024 F/U 6-12 months Coding Level of Care Code Est Pt Level 4 (12244) Diagnoses Pulmonary nodule R91.1 Dyspnea on exertion R06.09 Dyspnea type: dyspnea on exertion Tachycardia R00.0 Chronic restrictive lung disease J98.4 Moderate persistent asthma without complication J45.40 Asthma complication type: uncomplicated Asthma persistence: persistent Asthma severity: moderate Time Spent (min) 18
== END 2023-08-24 16:06 | disposition home or self-care (01) ==
PROVIDERS: PCP Internal Medicine; Visit Provider Hospitalist
DX: R91.1 Solitary pulmonary nodule (principal); R06.09 Other forms of dyspnea; R00.0 Tachycardia, unspecified; J98.4 Other disorders of lung; J45.40 Moderate persistent asthma, uncomplicated
CPT/HCPCS: 99214

== ENCOUNTER → 2023-08-24 15:41 | Outpatient (BNVA) | payer BC, SELFPAY | PROVIDERS: PCP Internal Medicine; Visit Provider Hospitalist ==

== ENCOUNTER 2023-09-15 16:14 | Outpatient (REF) | payer BC, SELFPAY ==
--- NOTE | ~2023-09-15 | CT_ITS ---
EXAMINATION: CT CHEST WITHOUT CONTRAST CLINICAL INFORMATION: Solitary pulmonary nodule COMPARISON: 07/06/2022 TECHNIQUE: Multidetector volumetric CT imaging of the chest was done. Axial MIP volume rendering provided. Sagittal and coronal reformatted images were obtained. This CT examination was performed using dose optimization techniques as appropriate, variously including the following: *Automated exposure control *Adjustment of mA and/or kV according to patient size (this includes techniques or standardized protocols for targeted exams where dose is matched to indication/reason for exam; i.e. extremities or head) *Use of iterative reconstruction technique DLP: 205 mGy-cm FINDINGS: MERCURY WASHER: Patient status post median sternotomy LUNGS: There is stable lung nodules identified in the left lower lobe seen on image 416 measured approximately 0.2 cm and 0.4 cm right lower lobe nodule seen on image 2 and 242 series 5. There are no new nodules Lungs are well-expanded. Central airways are patent. MEDIASTINUM: The mediastinum is normal. CORONARY ARTERY CALCIFICATION: Not seen PLEURA: There is no pleural effusion. No pleural mass or thickening. AXILLA: No lymphadenopathy. UPPER ABDOMEN: Unremarkable. OSSEOUS STRUCTURES: Patient is status post median sternotomy CT/CT chest wo IV con IMPRESSION: Stable lung nodules. Per the 2017 revised Fleischner Society guidelines, recommend CT at 3-6 months, then if stable consider CT at 2 and 4 years in high-risk patients.
== END 2023-09-15 16:15 | disposition home or self-care (01) ==
LOC: HO.CT 16:14
PROVIDERS: PCP Internal Medicine; Visit Provider Hospitalist
DX: R91.1 Solitary pulmonary nodule (principal)
CPT/HCPCS: 71250

== ENCOUNTER 2025-04-27 15:44 | Outpatient (AMB) | payer BC, SELFPAY ==
[2025-04-27 15:45] VITALS: BP 122/84; PULSE 78; O2SAT 96; BMI 30.9
--- NOTE | 2025-04-27 15:45 | A.OFFPC_ITS ---
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: No Accompanied by: Self / Same As Patient Allergies No Known Allergies Allergy (Verified 04/27/25 16:01) Medication List - Last Reconciled 04/29/25 by Milton Almendarez MD albuterol sulfate 90 mcg/actuation 2 inhalations inhalation Q6H PRN 30 days aspirin 81 mg PO DAILY Tobacco use date assessed: 04/27/25 Dental Screening Dental Screen Date: 04/27/25 Did you have a dental visit in the last 12 months?: No Did you have a dental problem in the last 6 months where you did not have access to dental care?: No Was dental information given to patient?: No HPI SURAJ Dr Tubbs HPI Details - The patient is a 54-year-old male pres enting for his follow-up visit - he is transferring care over from Dr. Tubbs, who retired from the practice earlier this year but patient has not been seen by Dr. Tubbs since 04/2022 - He has a history of a breathing proble m for which the cause has not been determined, with possibilities including cardiac or pulmonary etiologies. - He has a history of mitral valve repai r back in 2014 - He quit smoking cold turkey after his heart surgery. - PFT previously done back in 2022 revea led (+) very mild degree of restrictive pulmonary disorder, with no obstructive airway disorder and no response to bronchodilator therapy. - His most recent echocardiogram done in 05/2023 revealed low normal LV ejection fraction with impaired relaxation filling pattern, good mitral valve repair, normal RV systolic pressure and no gross pericardial effusion - His cholesterol levels were last check ed back in 2019 and he last had labs done about two years ago. - He reports a weight gain of 2-3 lbs ov er the past six months. - He has a past surgical history of knee surgery performed at [facility] as well as his mitral valve repair with Dr. Cristina back in 2014 Patient currently denies any headaches or dizziness He denies any chest pains; he still noted (+) mild ANGEL at times No nausea/vomiting, no abdominal pain No change in bowel habits noted [facility] Medical History (Updated 04/29/25 @ 03:20 by Milton Almendarez MD) Asthma Chronic restrictive lung disease Tachycardia Pulmonary nodule History of fatty infiltration of liver Pulmonary nodule Hx of mitral valve prolapse Surgical History (Updated 04/28/25 @ 22:08 by Milton Almendarez MD) Hx of knee surgery Hx of cardiac catheterization H/O mitral valve repair Family History Father Medical history unknown Mother Medical history unknown Social History Housing: Apartment Alcohol intake: current Alcohol intake frequency: holidays/special occasions only Patient Tobacco Use Status: Former Tobacco user Tobacco use type: Cigarette Years Smoked: 20 +/- e-Cigarette/Vaping Use: Never Used Second Hand Smoke Exposure: Yes service: Yes Current occupational status: employed Cognitive needs: No Hearing needs: No Vision needs: No Questionnaire PHQ-9 Over the last 2 weeks, how often have you been bothered by any of the following problems? 1. Little interest or pleasure in doing things: not at all 2. Feeling down, depressed, or hopeless: not at all 3. Trouble falling or staying asleep, or sleeping too much: not at all 4. Feeling tired or having little energy: not at all 5. Poor appetite or overeating: not at all 6. Feeling bad about yourself - or that you are a failure or have let yourself or your family down: not at all 7. Trouble concentrating on things, such as reading the newspaper or watching television: not at all 8. Moving or speaking so slowly that other people could have noticed. Or the opposite - being so fidgety or restless that you have been moving around a lot more than usual: not at all 9. Thoughts that you would be better off or of hurting yourself in some way: not at all Total score: 0 Depression Screening Interpretation: Negative Depression Screening Done: Yes 43855 - PHQ-9 Billing: Yes Source: Developed by Drs. Mello Fitzgerald, Shantel Suarez, Tony Byrne and colleagues, with an educational candace from [employer]. Thrive Questionnaire Date Thrive assessed: 04/27/25 I am a: Patient What is your living situation today?: I have a steady place to live Within the past 12 months, did the food you bought not last and you didn't have the money to get more?: Never true Within the past 12 months, did you worry whether your food would run out before you got money to buy more?: Never true Do you have trouble paying for medicines?: No Do you have trouble getting transportation to medical appointments?: No Do you have trouble paying your heating and electricity bill?: No Do you have trouble taking care of your child, family member or friend?: No Do you have trouble with day-to-day activities such as bathing, preparing meals, shopping, managing finances, etc.?: No Are you currently unemployed and looking for a job?: No Are you interested in more education?: No Please select the resources that you would like help with: None Currently or been in a relationship where the following occur: No concerns reported THRIVE Score: 0 AUDIT C Alcohol Use Questionnaire (AUDIT-C) 1. How often do you have a drink containing alcohol?: Never 3. How often do you have six or more drinks on one occasion?: Never Total Score: 0 Score Reviewed/Action Taken: Yes EDELMIRA-7 AMB Questionnaire EDELMIRA-7 Date EDELMIRA - 7 assessed: 04/27/25 Feeling nervous, anxious, or on edge: 0 = Not at all Not being able to stop or control worryin = Not at all Worrying too much about different things: 0 = Not at all Trouble relaxin = Not at all Being so restless that it is hard to sit still: 0 = Not at all Becoming easily annoyed or irritable: 0 = Not at all Feeling afraid as if something awful might happen: 0 = Not at all Total EDELMIRA-7 score (0-4 normal; 5-9 mild; 10-14 moderate; 15-21 severe): 0 Source: Developed by Drs. Mello Fitzgerald, Shantel Suarez, Tony Byrne and colleagues, with an educational candace from [employer]. Review of Systems Const Denies chills, Denies fatigue, Denies fever(s) and Denies headache(s) ENT Denies dysphagia, Denies dizziness, Denies otalgia, Denies headache(s), Denies neck pain, Denies odynophagia and Denies sore throat Card Denies chest pain, Denies palpitations and Reports dyspnea on exertion (mild) Resp Denies chest congestion, Denies cough and Reports dyspnea on exertion (mild) GI Denies abdominal pain, Denies constipation, Denies dysphagia, Denies heartburn, Denies diarrhea, Denies nausea, Denies odynophagia and Denies vomiting Denies difficulty urinating, Denies dysuria, Denies nocturia and Denies urinary frequency Musc Denies back pain, Denies arthralgias and Denies neck pain Skin/Breast Denies rash Neuro Denies dizziness and Denies headache(s) Endo Denies fatigue and Denies palpitations Physical exam (Primary Care) Vital Signs: Last Vital Signs Pulse 78 04/27/25 15:45 BP 122/84 04/27/25 15:45 Pulse Ox 96 04/27/25 15:45 Oxygen Delivery Method Room Air 04/27/25 15:45 BMI result Body Mass Index 30.9 Tobacco/Smoking Status: Tobacco use Status Tobacco use date assessed 04/27/25 04/27/25 15:51 Patient Tobacco Use Status Former Tobacco user 04/27/25 15:51 Tobacco use type Cigarette 04/27/25 15:51 e-Cigarette/Vaping Use Never Used 04/27/25 15:51 PHQ-9: PHQ-9 Score PHQ-9: Total score 0 04/28/25 22:12 Depression Screening Interpretation: Negative Thrive Assessment: Date of Thrive Assessment Date Thrive assessed 04/27/25 04/27/25 15:51 Currently or been in a relationship where the following occur: No concerns reported Const General: no acute distress and alert HENMT Ears: TM's normal bilaterally and EAC's normal Throat: Yes posterior oropharynx normal and Yes tonsils normal (no TP congestion) Neck Neck: Yes supple and No lymphadenopathy Thyroid: Thyroid normal Resp Auscultation: clear to auscultation bilaterally, no rales and no wheezes Cardio Rate: regular rate Rhythm: regular rhythm Heart sounds: no murmurs GI Palpation (GI): Soft to palpation and nontender Auscultation: normal bowel sounds General: Yes no CVA tenderness Back/Spine/Pelvis Back: no CVA tenderness Thoracic/Lumbar Spine: No lumbar spinal tenderness Skin Rashes: no rashes Extrem General: Yes no clubbing, cyanosis or edema Coding Level of Care Code Est Pt Level 4 (57740) Diagnoses Moderate persistent asthma without complication J45.40 Asthma severity: moderate Asthma persistence: persistent Asthma complication type: uncomplicated Chronic restrictive lung disease J98.4 Pulmonary nodule R91.1 Hx of mitral valve prolapse Z86.79 Additional Codes PHQ-9 - 73448 - PHQ-9 Billing: Yes ([id number]) Assessment & Plan Assessment & Plan (1) Asthma: Comment: occupational, environmental Code(s): J45.909 - Unspecified asthma, uncomplicated Category: Medical Qualifiers: Asthma severity: moderate Asthma persistence: persistent Asthma complication type: uncomplicated Qualified Code(s): J45.40 - Moderate persistent asthma, uncomplicated Plan: Continue Albuterol HFA 1 to 2 inhalations Q 6 hours PRN (2) Chronic restrictive lung disease: Code(s): J98.4 - Other disorders of lung Category: Medical Plan: PFTs done on 06/29/2022 revealed (+) very mild degree of restrictive pulmonary disorder with no obstructive airway disorder; no response to bronchodilator therapy (3) Pulmonary nodule: Code(s): R91.1 - Solitary pulmonary nodule Category: Medical Plan: Chest CT last done on 09/15/2023 revealed (+) Stable lung nodules. Per the 2017 revised Fleischner Society guidelines, recommend CT at 3-6 months, then if stable consider CT at 2 and 4 years in high-risk patients He was supposed to have repeat chest CT done sometime in 02/2024 but he did not get this scheduled Have advised patient to reach out to pulmonary to see if they still want him to continue with his chest CT follow up as he has not been back for his follow up visits with them since he was last seen in August 2023 (4) Hx of mitral valve prolapse: Comment: s/p mitral valve [place] [address] Cristina Code(s): Z86.79 - Personal history of other diseases of the circulatory system Category: Medical Plan: Continue Aspirin 81 mg QD His most recent echocardiogram done on 06/03/2023 showed (+) low normal LV ejection fraction with impaired relaxation filling pattern, good mitral valve repair, normal RV systolic pressure and no gross pericardial effusion Cardioplumnonary exercise stress testing back on 06/11/2023 revealed normal exercise capacity and normal aerobic capacity Patient states that he stays active and plays softball regularly during the spring and summer months with hardly any restrictions Plan As he has not had any follow up labs done in over 2 years and his cholesterol levels were last checked way back in 2019, will have him go and get follow up labs done CHRISTIAN To return in 6 months for his annual physical examination Orders: Orders Complete Blood Count Auto Diff 04/27/25 D64.9 - Anemia, unspecified Comprehensive [place]. Panel Fast 04/27/25 E78.00 - Pure hypercholesterolemia, unspecified Lipid Panel 04/27/25 E78.00 - Pure hypercholesterolemia, unspecified TSH reflex Free T4 04/27/25 E78.00 - Pure hypercholesterolemia, unspecified Vitamin D 25-OH Total 04/27/25 E55.9 - Vitamin D deficiency, unspecified Prostate Specific Antigen Scr 04/27/25 Z00.00 - Encounter for general adult medical examination without abnormal findings UA CC w/rflx Micro + Cult 04/27/25 R30.0 - Dysuria
== END 2025-04-27 16:19 | disposition home or self-care (01) ==
LOC: HO.HMCH 15:44
PROVIDERS: PCP Internal Medicine; Visit Provider Internal Medicine
DX: J45.40 Moderate persistent asthma, uncomplicated (principal); J98.4 Other disorders of lung; R91.1 Solitary pulmonary nodule; Z86.79 Personal history of other diseases of the circulatory system

== ENCOUNTER → 2025-04-27 15:44 | Outpatient (BNVA) | payer BC, SELFPAY | PROVIDERS: PCP Internal Medicine; Visit Provider Internal Medicine | DX: J45.40 Moderate persistent asthma, uncomplicated (principal); J98.4 Other disorders of lung; R91.1 Solitary pulmonary nodule; Z86.79 Personal history of other diseases of the circulatory system | CPT/HCPCS: 96127 ==